=== PATIENT | male | born 1960 | race Caucasian/White ===

== ENCOUNTER 2016-10-10 08:23 | Inpatient (IN) | payer OTHER ==
[2016-10-10 10:53] VITALS: BMI 29.5
--- NOTE | 2016-10-10 11:49 | HP ---
COWS - Scale Resting Pulse: 0= [place] 80 or Below Sweatin= Chills/Flushing Restless Observation: 3= Extraneous Movement Pupil Size: 2= Moderately Dilated Bone or Joint Aches: 4=Acute Joint/Muscle Pain Runny Nose/ Eye Tearin= Nasal Congestion GI Upset > 30mins: 2= Nausea/Diarrhea Tremor Observation: 2= Slight Tremor Visible Yawning Observation: 2= >3x During Session Anxiety or Irritability: 2=Irritable/Anxious Goose Flesh Skin: 0=Smooth Skin COWS Score: 19 CIWA Score - CIWA Score Nausea/Vomitin (DIARRHEA) Muscle Tremors: 4-Moderate,w/Arms Extend Anxiety: 4-Mod. Anxious/Guarded Agitation: 4-Moderately Restless Paroxysmal Sweats: 1-Minimal Palms Moist Orientation: 0-Oriented Tacttile Disturbances: 3-Moderate Itch/Numb/Burn Auditory Disturbances: 0-None Visual Disturbances: 0-None Headache: 1-Very Mild CIWA-Ar Total Score: 20 Admission ROS BHS - HPI Chief Complaint: DETOX TX FOR ALCOHOL AND HEROIN DEPENDENCE Allergies/Adverse Reactions: Allergies Allergy/AdvReac Type Severity Reaction Status Date / Time No Known Allergies Allergy Verified 10/10/16 10:08 History of Present Illness: 56 Y/O H/M WITH A HX HEROIN, ALCOHOL AND COCAINE DEPENDENCE SEEKING DETOX TX. Exam Limitations: No Limitations - Ebola screening Have you traveled outside of the country in the last 21 days: No Have you had contact with anyone from an Ebola affected area: No Have you been sick,other than usual withdrawal symptoms: No Do you have a fever: No - Review of Systems Constitutional: Chills, Diaphoresis, Night Sweats EENT: reports: Blurred Vision, Tearing, Nose Congestion, Dental Problems (UPPER/ LOWER FULL DENTURES) Respiratory: reports: No Symptoms reported Cardiac: reports: Lightheadedness GI: reports: Diarrhea : reports: No Symptoms Reported Musculoskeletal: reports: Back Pain, Joint Pain, Muscle Pain Integumentary: reports: No Symptoms Reported Neuro: reports: Headache, Tremors, Unsteady Gait, Dizziness Endocrine: reports: No Symptoms Reported Hematology: reports: No Symptoms Reported Psychiatric: reports: Orientated x3, Anxious Other Systems: Reviewed and Negative Patient History - Patient Medical History Hx Anemia: No Hx Asthma: No Hx Chronic Obstructive Pulmonary Disease (COPD): No Hx Cancer: No Hx Cardiac Disorders: No Hx Congestive Heart Failure: No Hx Hypertension: Yes (ON MED LISINOPRIL) Hx Hypercholesterolemia: No Hx Pacemaker: No HX Cerebrovascular Accident: No Hx Seizures: No Hx Dementia: No Hx Diabetes: No Hx Gastrointestinal Disorders: No Hx Liver Disease: No Hx Genitourinary Disorders: No Hx Sexually Transmitted Disorders: No Hx Renal Disease (ESRD): No Hx Thyroid Disease: No Hx Human Immunodeficiency Virus (HIV): No (NEGATIVE HX) Hx Hepatitis C: Yes (TREATED) Hx Depression: No Hx Suicide Attempt: No (DENIES) Hx Bipolar Disorder: No Hx Schizophrenia: No - Patient Surgical History Past Surgical History: No Hx Neurologic Surgery: No Hx Cataract Extraction: No Hx Cardiac Surgery: No Hx Lung Surgery: No Hx Breast Surgery: No Hx Breast Biopsy: No Hx Abdominal Surgery: No Hx Appendectomy: No Hx Cholecystectomy: No Hx Genitourinary Surgery: No Hx Orthopedic Surgery: No Anesthesia Reaction: No - PPD History Previous Implant?: Yes Documented Results: Negative w/proof Implanted On Prior [facility] Admission?: Yes Date: 11/12/14 Results: 0 mm PPD to be Administered?: Yes - Reproductive History Patient is a Female of Child Bearing Age (11 -55 yrs old): No (MALE) Patient : (N/A) - Smoking Cessation Smoking history: Never smoked Have you smoked in the past 12 months: No Hx Chewing Tobacco Use: No Initiated information on smoking cessation: No - Substance & Tx. History Hx Alcohol Use: Yes (VODKA) Hx Substance Use: Yes (HEROIN/COCAINE) Substance Use Type: Alcohol, Cocaine, Heroin Hx Substance Use Treatment: Yes (LAST TX AT [facility]) - Substances Abused Heroin Route: Inhalation Frequency: Daily Amount used: 3-4 bags Age of first use: 36 Date of Last Use: 10/09/16 Alcohol Route: Oral Frequency: Daily Amount used: vodka(1 pint) Age of first use: 14 Date of Last Use: 10/09/16 Cocaine Route: Inhalation Frequency: 1-3 times last 30 days Amount used: 1 bag Age of first use: 36 Date of Last Use: 10/09/16 Family Disease History - Family Disease History Family Disease History: Other: Father (ALCOHOL,) Admission Physical Exam BHS - Vital Signs Vital Signs: Vital Signs - 24 hr 10/10/16 10:49 Temperature 97.3 F L Pulse Rate 60 Respiratory 18 Rate Blood Pressure 160/84 - Physical General Appearance: Yes: Nourished, Moderate Distress, Irritable, Anxious HEENTM: Yes: EOMI, Normocephalic, LACY, Pharynx Normal, Nasal Congestion Respiratory: Yes: Chest Non-Tender, Lungs Clear, Normal Breath Sounds, No Respiratory Distress Neck: Yes: No masses,lesions,Nodules, Supple, Trachea in good position Breast: Yes: Breast Exam Deferred Cardiology: Yes: Regular Rhythm, Regular Rate, S1, S2 Abdominal: Yes: Normal Bowel Sounds, Non Tender, Soft Genitourinary: Yes: Other (N/C) Back: Yes: Within Normal Limits Musculoskeletal: Yes: full range of Motion, Gait Steady Extremities: Yes: Normal Range of Motion, Non-Tender Neurological: Yes: sales office coordinator II-XII NML intact, Fully Oriented, Alert, Motor Strength 5/5 Integumentary: Yes: Dry, Warm, Other (TATTOO LEFT UPPER ARM) Lymphatic: Yes: Within Normal Limits - Diagnostic (1) Alcohol dependence with uncomplicated withdrawal Current Visit: Yes Status: Acute (2) Opioid dependence with withdrawal Current Visit: Yes Status: Acute (3) Essential hypertension Current Visit: Yes Status: Chronic Comment: ON MED NOW (4) Cocaine dependence, uncomplicated Current Visit: Yes Status: Acute (5) Hepatitis C Current Visit: Yes Status: Chronic Qualifiers: Viral hepatitis chronicity: chronic Hepatic coma status: without hepatic coma Qualified Code(s): B18.2 - Chronic viral hepatitis C Cleared for Admission [facility] - Detox or Rehab [facility] Level of Care: Medically Managed Detox Regimen/Protocol: Methadone/Librium [facility] Breath Alcohol Content Breath Alcohol Content: 0 Urine Drug Screen - Results Drug Screen Negative: No Urine Drug Screen Results: NARGIS-Cocaine, OPI-Opiates
[2016-10-10] MEDS ORDERED: MENTHOL/PHENOL 1 EACH UD MM PRN (12:06)
[2016-10-10] MEDS ORDERED: LOPERAMIDE HCL 2 MG CAPSULE PO PRN (12:06)
[2016-10-10] MEDS ORDERED: guaiFENesin/D-METHORPHAN HB 10 ML UNIT-DOSE CUPS PO PRN (12:06)
[2016-10-10] MEDS ORDERED: MAG HYDROX/AL HYDROX/SIMETH 30 ML UNIT-DOSE CUP PO PRN (12:06)
[2016-10-10] MEDS ORDERED: IBUPROFEN 400 MG TABLET (FP) PO PRN (12:06)
[2016-10-10] MEDS ORDERED: MAGNESIUM CITRATE 300 ML BOTTLE PO PRN (12:06)
[2016-10-10] MEDS ORDERED: ACETAMINOPHEN 325 MG TABLET (FP) PO PRN (12:06)
[2016-10-10] MEDS ORDERED: P-EPHED 60MG/TRIPROLIDI 2.5MG TABLET PO PRN (12:06)
[2016-10-10] MEDS ORDERED: chlordiazePOXIDE HCL 25 MG CAPSULE PO PRN (12:06)
[2016-10-10] MEDS ORDERED: diphenhydrAMINE HCL 50 MG CAPSULE PO PRN (12:06)
[2016-10-10] MEDS ORDERED: MAGNESIUM HYDROX 2400MG/30ML ORAL SUSPENSION 30 ML CUP PO PRN (12:06)
[2016-10-10] MEDS ORDERED: METHADONE HCL 10 MG TABLET (FOR DETOX USE ONLY) PO ONE ×2 (12:14→23:00)
[2016-10-10] MEDS: LISINOPRIL 20 MG TABLET (FP) PO SCH (13:45)
[2016-10-10 17:06] LABS: URINE APPEARANCE SLCLOUDY; URINE BILIRUBIN NEGATIVE (NEGATIVE); URINE BLOOD 2+ (NEGATIVE); URINE COLOR YELLOW; URINE GLUCOSE (UA) NEGATIVE (NEGATIVE); URINE KETONE NEGATIVE (NEGATIVE); URINE NITRITE NEGATIVE (NEGATIVE); URINE PROTEIN NEGATIVE (NEGATIVE); URINE UROBILINOGEN NEGATIVE mg/dL (0.2-1.0)
[2016-10-10 17:08] LABS: URINE LEUK ESTERASE 3+ (NEGATIVE)
[2016-10-10 17:11] LABS: URINE RBC 12 /hpf (0-3); URINE WBC 127 /hpf (3-5); YEAST FEW
--- NOTE | 2016-10-10 17:47 | EKG ---
Test Reason : Blood Pressure : / mmHG Vent. Rate : 052 BPM Atrial Rate : 052 BPM P-R Int : 136 ms QRS Dur : 088 ms QT Int : 462 ms P-R-T Axes : 066 020 029 degrees QTc Int : 429 ms SINUS BRADYCARDIA OTHERWISE NORMAL ECG NO PREVIOUS ECGS AVAILABLE Confirmed by TONI ADAM MD ([id number]) on 10/10/2016 5:46:49 PM Referred By: Brendon Farrell Confirmed By:TONI ADAM MD
[2016-10-10] MEDS: chlordiazePOXIDE HCL 25 MG CAPSULE PO SCH ×2 (17:55→22:35)
[2016-10-10] MEDS: THIAMINE HCL 100 MG TABLET (FP) PO SCH (22:35)
[2016-10-11] MEDS: chlordiazePOXIDE HCL 25 MG CAPSULE PO SCH ×3 (05:19→17:50)
[2016-10-11] MEDS ORDERED: METHADONE HCL 10 MG TABLET (FOR DETOX USE ONLY) PO SCH (10:00)
[2016-10-11 10:31] LABS: MCH 30.5 pg (25.7-33.7); MCHC 34.5 g/dl (32.0-35.9); MEAN CELL VOLUME 88.3 fl (80-96); PLATELET COUNT 164 K/MM3 (134-434); RDW 13.2 % (11.9-15.9); WHITE BLOOD COUNT 6.7 K/mm3 (4.0-10.0)
[2016-10-11] MEDS: PRENATAL VITAMINS W/ FOLIC ACID TABLET (FP) PO SCH (11:28)
[2016-10-11] MEDS: LISINOPRIL 20 MG TABLET (FP) PO SCH (11:28)
--- NOTE | 2016-10-11 11:28 | PN ---
S CIWA - CIWA Score Nausea/Vomitin Muscle Tremors: 3 Anxiety: 3 Agitation: 3 Paroxysmal Sweats: 1-Minimal Palms Moist Orientation: 0-Oriented Tacttile Disturbances: 1-Very Mild Itch/Numbness Auditory Disturbances: 1-Very Mild Visual Disturbances: 1-Very Mild Sensitivity Headache: 2-Mild CIWA-Ar Total Score: 18 BHS COWS - Scale Resting Pulse: 0= [place] 80 or Below Sweatin= Chills/Flushing Restless Observation: 3= Extraneous Movement Pupil Size: 1= Pupils >than Normal Bone or Joint Aches: 2= Severe Diffuse Aches Runny Nose/ Eye Tearin= Runny Nose/Eyes GI Upset > 30mins: 2= Nausea/Diarrhea Tremor Observation of Outstretched Hands: 2= Slight Tremor Visible Yawning Observation: 1= 1-2x During Session Anxiety or Irritability: 2=Irritable/Anxious Goose Flesh Skin: 0=Smooth Skin COWS Score: 16 S Progress Note (SOAP) Subjective: ALERT,IRRITABLE,ANXIOUS,INTERRUPTED SLEEP,TREMOR,PAIN IN THE BODY AND BACK Objective: 10/11/16 11:25 Vital Signs Temperature 97.5 F L 10/11/16 06:10 Pulse Rate 57 L 10/11/16 06:10 Respiratory Rate 16 10/11/16 06:10 Blood Pressure 143/81 10/11/16 06:10 O2 Sat by Pulse Oximetry (%) EKG SINUS BRADYCARDIA 52/MIN NO CHEST PAIN,NO SOB,NO DIZZINESS Laboratory Last Values WBC 6.7 K/mm3 (4.0-10.0) D 10/11/16 06:00 RBC 4.60 M/mm3 (4.00-5.60) 10/11/16 06:00 Hgb 14.0 GM/dL (11.7-16.9) 10/11/16 06:00 Hct 40.6 % (35.4-49) 10/11/16 06:00 MCV 88.3 fl (80-96) 10/11/16 06:00 MCH 30.5 pg (25.7-33.7) 10/11/16 06:00 MCHC 34.5 g/dl (32.0-35.9) 10/11/16 06:00 RDW 13.2 % (11.9-15.9) 10/11/16 06:00 Plt Count 164 K/MM3 (134-434) 10/11/16 06:00 MPV 11.0 fl (7.5-11.1) D 10/11/16 06:00 Urine Color Yellow 10/10/16 14:00 Urine Appearance Slcloudy 10/10/16 14:00 Urine pH 6.0 (5.0-8.0) 10/10/16 14:00 Ur Specific [place] 1.020 (1.005-1.025) 10/10/16 14:00 Urine Protein Negative (NEGATIVE) 10/10/16 14:00 Urine Glucose (UA) Negative (NEGATIVE) 10/10/16 14:00 Urine Ketones Negative (NEGATIVE) 10/10/16 14:00 Urine Blood 2+ (NEGATIVE) H 10/10/16 14:00 Urine Nitrite Negative (NEGATIVE) 10/10/16 14:00 Urine Bilirubin Negative (NEGATIVE) 10/10/16 14:00 Urine Urobilinogen Negative mg/dL (0.2-1.0) 10/10/16 14:00 Ur Leukocyte Esterase 3+ (NEGATIVE) H 10/10/16 14:00 Urine RBC 12 /hpf (0-3) 10/10/16 14:00 Urine WBC 127 /hpf (3-5) 10/10/16 14:00 Urine Yeast Few 10/10/16 14:00 Assessment: 10/11/16 11:27 WITHDRAWAL SYMPTOM Plan: CONTINUE DETOX,URINE FOR C/S UTI,BACTRIM DS 1 TAB PO BID,ENCOURAGE ORAL FLUID
[2016-10-11 11:58] LABS: ALK PHOS 88 U/L (45-117); ANION GAP 10 (8-16); BILIRUBIN,TOTAL 0.8 mg/dL (0.2-1.0); CALCIUM 9.2 mg/dL (8.5-10.1); CO2 25 mmol/L (21-32); CREATININE 1.1 mg/dL (0.7-1.3); GLUCOSE,RANDOM 114 mg/dL (74-106); SGOT/AST 29 U/L (15-37); SGPT/ALT 26 U/L (12-78); TOT PROT 7.6 g/dl (6.4-8.2)
[2016-10-11] MEDS: SULFAMETHOXAZOLE/TRIMETHOPRIM 800MG/160MG D.S. TABLET PO SCH (23:59)
[2016-10-12] MEDS: chlordiazePOXIDE HCL 25 MG CAPSULE PO SCH ×3 (05:50→10:44)
[2016-10-12] MEDS ORDERED: METHADONE HCL 5 MG TABLET (FOR DETOX USE ONLY) PO SCH (10:00)
--- NOTE | 2016-10-12 10:02 | PN ---
S CIWA - CIWA Score Nausea/Vomitin Muscle Tremors: 3 Anxiety: 3 Agitation: 3 Paroxysmal Sweats: 1-Minimal Palms Moist Orientation: 0-Oriented Tacttile Disturbances: 1-Very Mild Itch/Numbness Auditory Disturbances: 1-Very Mild Visual Disturbances: 1-Very Mild Sensitivity Headache: 2-Mild CIWA-Ar Total Score: 18 BHS COWS - Scale Resting Pulse: 0= [place] 80 or Below Sweatin= Chills/Flushing Restless Observation: 3= Extraneous Movement Pupil Size: 1= Pupils >than Normal Bone or Joint Aches: 2= Severe Diffuse Aches Runny Nose/ Eye Tearin= Runny Nose/Eyes GI Upset > 30mins: 2= Nausea/Diarrhea Tremor Observation of Outstretched Hands: 2= Slight Tremor Visible Yawning Observation: 1= 1-2x During Session Anxiety or Irritability: 2=Irritable/Anxious Goose Flesh Skin: 0=Smooth Skin COWS Score: 16 S Progress Note (SOAP) Subjective: alert,irritable,anxious,interrupted sleep,pain in the body and back,rash right middle finger,tremor Objective: 10/12/16 10:01 Vital Signs Temperature 97.7 F 10/12/16 06:25 Pulse Rate 52 L 10/12/16 06:25 Respiratory Rate 18 10/12/16 06:25 Blood Pressure 155/68 10/12/16 06:25 O2 Sat by Pulse Oximetry (%) Laboratory Last Values WBC 6.7 K/mm3 (4.0-10.0) D 10/11/16 06:00 RBC 4.60 M/mm3 (4.00-5.60) 10/11/16 06:00 Hgb 14.0 GM/dL (11.7-16.9) 10/11/16 06:00 Hct 40.6 % (35.4-49) 10/11/16 06:00 MCV 88.3 fl (80-96) 10/11/16 06:00 MCH 30.5 pg (25.7-33.7) 10/11/16 06:00 MCHC 34.5 g/dl (32.0-35.9) 10/11/16 06:00 RDW 13.2 % (11.9-15.9) 10/11/16 06:00 Plt Count 164 K/MM3 (134-434) 10/11/16 06:00 MPV 11.0 fl (7.5-11.1) D 10/11/16 06:00 Sodium 136 mmol/L (136-145) 10/11/16 06:00 Potassium 4.6 mmol/L (3.5-5.1) 10/11/16 06:00 Chloride 101 mmol/L (98-107) 10/11/16 06:00 Carbon Dioxide 25 mmol/L (21-32) 10/11/16 06:00 Anion Gap 10 (8-16) 10/11/16 06:00 BUN 17 mg/dL (7-18) 10/11/16 06:00 Creatinine 1.1 mg/dL (0.7-1.3) 10/11/16 06:00 Creat Clearance w eGFR > 60 (>60) 10/11/16 06:00 Random Glucose 114 mg/dL (74-106) H 10/11/16 06:00 Calcium 9.2 mg/dL (8.5-10.1) 10/11/16 06:00 Total Bilirubin 0.8 mg/dL (0.2-1.0) 10/11/16 06:00 AST 29 U/L (15-37) D 10/11/16 06:00 ALT 26 U/L (12-78) D 10/11/16 06:00 Alkaline Phosphatase 88 U/L (45-117) D 10/11/16 06:00 Total Protein 7.6 g/dl (6.4-8.2) 10/11/16 06:00 Albumin 4.0 g/dl (3.4-5.0) D 10/11/16 06:00 Urine Color Yellow 10/10/16 14:00 Urine Appearance Slcloudy 10/10/16 14:00 Urine pH 6.0 (5.0-8.0) 10/10/16 14:00 Ur Specific [place] 1.020 (1.005-1.025) 10/10/16 14:00 Urine Protein Negative (NEGATIVE) 10/10/16 14:00 Urine Glucose (UA) Negative (NEGATIVE) 10/10/16 14:00 Urine Ketones Negative (NEGATIVE) 10/10/16 14:00 Urine Blood 2+ (NEGATIVE) H 10/10/16 14:00 Urine Nitrite Negative (NEGATIVE) 10/10/16 14:00 Urine Bilirubin Negative (NEGATIVE) 10/10/16 14:00 Urine Urobilinogen Negative mg/dL (0.2-1.0) 10/10/16 14:00 Ur Leukocyte Esterase 3+ (NEGATIVE) H 10/10/16 14:00 Urine RBC 12 /hpf (0-3) 10/10/16 14:00 Urine WBC 127 /hpf (3-5) 10/10/16 14:00 Urine Yeast Few 10/10/16 14:00 RPR Titer Nonreactive (NONREACTIVE) 10/11/16 06:00 urine for c/s pending Assessment: 10/12/16 10:02 withdrawal symptom Plan: continue detox
[2016-10-12] MEDS: LISINOPRIL 20 MG TABLET (FP) PO SCH (10:43)
[2016-10-12] MEDS: PRENATAL VITAMINS W/ FOLIC ACID TABLET (FP) PO SCH (10:43)
[2016-10-12] MEDS: SULFAMETHOXAZOLE/TRIMETHOPRIM 800MG/160MG D.S. TABLET PO SCH ×2 (10:43→22:35)
[2016-10-12] MEDS: HYDROCORTISONE 0.5% TOPICAL CREAM 30 GM TUBE TP SCH ×2 (10:46→22:51)
[2016-10-12] MEDS: chlordiazePOXIDE 5 MG CAPSULE PO SCH ×2 (19:01→22:35)
[2016-10-12] MEDS: THIAMINE HCL 100 MG TABLET (FP) PO SCH ×2 (22:35)
[2016-10-13] MEDS: chlordiazePOXIDE 5 MG CAPSULE PO SCH ×2 (07:00→11:14)
--- NOTE | 2016-10-13 08:14 | PN ---
S Progress Note (SOAP) Subjective: alert,irritable,anxious,interrupted sleep,pain in the body Objective: 10/13/16 08:13 Vital Signs Temperature 97.3 F L 10/13/16 06:11 Pulse Rate 59 L 10/13/16 06:11 Respiratory Rate 16 10/13/16 06:11 Blood Pressure 112/61 10/13/16 06:11 O2 Sat by Pulse Oximetry (%) Assessment: 10/13/16 08:13 withdrawal symptom but less Plan: continue detox,medication adjust,discharge in am
[2016-10-13] MEDS ORDERED: METHADONE HCL 10 MG TABLET (FOR DETOX USE ONLY) PO ONE (10:10)
[2016-10-13] MEDS: SULFAMETHOXAZOLE/TRIMETHOPRIM 800MG/160MG D.S. TABLET PO SCH (11:13)
[2016-10-13] MEDS: PRENATAL VITAMINS W/ FOLIC ACID TABLET (FP) PO SCH (11:13)
[2016-10-13] MEDS: LISINOPRIL 20 MG TABLET (FP) PO SCH (11:13)
[2016-10-13] MEDS: HYDROCORTISONE 0.5% TOPICAL CREAM 30 GM TUBE TP SCH (11:14)
[2016-10-13] MEDS: chlordiazePOXIDE HCL 10 MG CAPSULE PO SCH (18:05)
[2016-10-14] MEDS: chlordiazePOXIDE HCL 10 MG CAPSULE PO SCH (05:28)
[2016-10-14] MEDS ORDERED: METHADONE HCL 5 MG TABLET (FOR DETOX USE ONLY) PO ONE (06:00)
[2016-10-14 06:25] VITALS: BP 133/78; PULSE 48; TEMP 97.3
--- NOTE | 2016-10-14 08:30 | DS ---
[facility] Detox Discharge Summary Admission Date: 10/10/16 Discharge Date: 10/14/16 - History Present History: Alcohol Dependence, Cocaine Dependence, Opioid Dependence Pertinent Past History: essential hypertension hepatitis c uti - Physical Exam Results Vital Signs: Vital Signs Temperature 97.3 F L 10/14/16 06:24 Pulse Rate 48 L 10/14/16 06:24 Respiratory Rate 16 10/14/16 06:24 Blood Pressure 133/78 10/14/16 06:24 O2 Sat by Pulse Oximetry (%) Pertinent Admission Physical Exam Findings: withdrawal symptom - Treatment Hospital Course: Detox Protocol Followed, Detoxed Safely, Responded well, Discharged Condition Good Patient has Accepted a Rehab Referral to: declined - Medication Discharge Medications: Ambulatory Orders Lisinopril 20 mg PO DAILY 10/10/16 - Diagnosis (1) UTI (urinary tract infection) Current Visit: Yes Status: Acute (2) Alcohol dependence with uncomplicated withdrawal Current Visit: Yes Status: Acute (3) Cocaine dependence, uncomplicated Current Visit: Yes Status: Acute (4) Opioid dependence with withdrawal Current Visit: Yes Status: Acute (5) Essential hypertension Current Visit: Yes Status: Chronic (6) Hepatitis C Current Visit: Yes Status: Chronic Qualifiers: Viral hepatitis chronicity: chronic Hepatic coma status: without hepatic coma Qualified Code(s): B18.2 - Chronic viral hepatitis C (7) Syncope Current Visit: No Status: Active (8) Nicotine dependence Current Visit: No Status: Chronic Qualifiers: Nicotine product type: cigarettes Substance use status: uncomplicated Qualified Code(s): F17.210 - Nicotine dependence, cigarettes, uncomplicated - AMA Did Patient Leave Against Medical Advice: No
[2016-10-14] MEDS ORDERED: METHADONE HCL 10 MG TABLET (FOR DETOX USE ONLY) PO SCH (10:00)
[2016-10-15] MEDS ORDERED: METHADONE HCL 5 MG TABLET (FOR DETOX USE ONLY) PO SCH (06:00)
== END 2016-10-14 08:47 | disposition home or self-care (01) | DRG 773 ==
LOC: YASAS 08:23 → Y6N 11:36
PROVIDERS: ADMIT Internal Medicine; ATTEND Internal Medicine
PROC: HZ2ZZZZ Detoxification Services for Substance Abuse Treatment (ICD-10-PCS; principal; 2016-10-10)
DX: F11.23 Opioid dependence with withdrawal (principal); F10.230 Alcohol dependence with withdrawal, uncomplicated; F14.20 Cocaine dependence, uncomplicated; F17.210 Nicotine dependence, cigarettes, uncomplicated; I10 Essential (primary) hypertension; N39.0 Urinary tract infection, site not specified; B18.2 Chronic viral hepatitis C; R00.1 Bradycardia, unspecified; Z86.79 Personal history of other diseases of the circulatory system
CPT/HCPCS: 36415; 80053; 81003; 81015; 82947; 85027; 86593; 87086; 87186; 93005; 93010

== ENCOUNTER 2017-02-06 13:39 | Inpatient (IN) | payer OTHER ==
[2017-02-06 14:01] VITALS: BMI 25.4
--- NOTE | 2017-02-06 15:04 | HP ---
COWS - Scale Resting Pulse: 1= [place] 81-100 Sweatin=Flushed/Facial Moisture Restless Observation: 1= Difficult to Sit Still Pupil Size: 0= Normal to Room Light Bone or Joint Aches: 2= Severe Diffuse Aches Runny Nose/ Eye Tearin= Runny Nose/Eyes GI Upset > 30mins: 2= Nausea/Diarrhea Tremor Observation: 2= Slight Tremor Visible Yawning Observation: 2= >3x During Session Anxiety or Irritability: 2=Irritable/Anxious Goose Flesh Skin: 3=Piloerection COWS Score: 19 CIWA Score - CIWA Score Nausea/Vomitin-Mild Nausea/No Vomiting Muscle Tremors: 4-Moderate,w/Arms Extend Anxiety: 4-Mod. Anxious/Guarded Agitation: 4-Moderately Restless Paroxysmal Sweats: 3 Orientation: 0-Oriented Tacttile Disturbances: 0-None Auditory Disturbances: 0-None Visual Disturbances: 0-None Headache: 1-Very Mild CIWA-Ar Total Score: 17 Admission ROS BHS - HPI Chief Complaint: I need to try this again, I have to get it right. Allergies/Adverse Reactions: Allergies Allergy/AdvReac Type Severity Reaction Status Date / Time No Known Allergies Allergy Verified 02/06/17 14:55 History of Present Illness: pt is a 56yr old male with a history of alcohol and heroin dependence seeking detox for treatment. Exam Limitations: No Limitations - Ebola screening Have you traveled outside of the country in the last 21 days: No Have you had contact with anyone from an Ebola affected area: No Have you been sick,other than usual withdrawal symptoms: No Do you have a fever: No - Review of Systems Constitutional: Diaphoresis, Loss of Appetite, Night Sweats, Changes in sleep EENT: reports: Tearing Respiratory: reports: No Symptoms reported Cardiac: reports: No Symptoms Reported GI: reports: Diarrhea, Nausea, Poor Appetite, Poor Fluid Intake : reports: No Symptoms Reported Musculoskeletal: reports: No Symptoms Reported Integumentary: reports: Flushing, Sweating Neuro: reports: Headache, Tingling, Tremors Endocrine: reports: Excessive Sweating, Flushing, Intolerance to Cold, Intolerance to Heat Hematology: reports: No Symptoms Reported Psychiatric: reports: Judgement Intact, Mood/Affect Appropiate, Orientated x3, Agitated, Anxious Other Systems: Reviewed and Negative Patient History - Patient Medical History Hx Anemia: No Hx Asthma: No Hx Chronic Obstructive Pulmonary Disease (COPD): No Hx Cancer: No Hx Cardiac Disorders: No Hx Congestive Heart Failure: No Hx Hypertension: Yes (ON MED LISINOPRIL) Hx Hypercholesterolemia: No Hx Pacemaker: No HX Cerebrovascular Accident: No Hx Seizures: No Hx Dementia: No Hx Diabetes: No Hx Gastrointestinal Disorders: No Hx Liver Disease: No Hx Genitourinary Disorders: No Hx Sexually Transmitted Disorders: No Hx Renal Disease (ESRD): No Hx Thyroid Disease: No Hx Human Immunodeficiency Virus (HIV): No (NEGATIVE HX) Hx Hepatitis C: Yes (TREATED) Hx Depression: No Hx Suicide Attempt: No (DENIES) Hx Bipolar Disorder: No Hx Schizophrenia: No - Patient Surgical History Past Surgical History: No Hx Neurologic Surgery: No Hx Cataract Extraction: No Hx Cardiac Surgery: No Hx Lung Surgery: No Hx Breast Surgery: No Hx Breast Biopsy: No Hx Abdominal Surgery: No Hx Appendectomy: No Hx Cholecystectomy: No Hx Genitourinary Surgery: No Hx Section: No Hx Orthopedic Surgery: No Anesthesia Reaction: No - PPD History Previous Implant?: Yes Documented Results: Negative w/proof Date: 10/12/16 Results: 0 mm PPD to be Administered?: No - Reproductive History Patient is a Female of Child Bearing Age (11 -55 yrs old): No - Smoking Cessation Smoking history: Never smoked Have you smoked in the past 12 months: No Hx Chewing Tobacco Use: No Initiated information on smoking cessation: No - Substance & Tx. History Hx Alcohol Use: Yes Hx Substance Use: Yes Substance Use Type: Alcohol, Heroin Hx Substance Use Treatment: Yes (last detox [facility]) - Substances Abused Alcohol Route: Oral Frequency: Daily Amount used: 5-6 BEERS/ 1/2 PINT VODKA Age of first use: 14 Date of Last Use: 02/06/17 Heroin Route: Inhalation Frequency: Daily Amount used: 8-9 BAGS Age of first use: 35 Date of Last Use: 02/05/17 Family Disease History - Family Disease History Family Disease History: Other: Father (ALCOHOL,) Admission Physical Exam BHS - Vital Signs Vital Signs: Vital Signs - 24 hr 02/06/17 13:57 Temperature 96.8 F L Pulse Rate 85 Respiratory 18 Rate Blood Pressure 149/50 - Physical General Appearance: Yes: Appropriately Dressed, Moderate Distress, Tremorous, Irritable, Sweating, Anxious HEENTM: Yes: Hearing grossly Normal, Normal Voice, Nasal Congestion, Rhinorrhea Respiratory: Yes: Lungs Clear, Normal Breath Sounds, No Respiratory Distress Neck: Yes: No masses,lesions,Nodules Breast: Yes: Within Normal Limits Cardiology: Yes: Regular Rhythm, Regular Rate, S1, S2 Abdominal: Yes: Normal Bowel Sounds, Non Tender, Soft Genitourinary: Yes: Within Normal Limits Back: Yes: Normal Inspection Musculoskeletal: Yes: full range of Motion Extremities: Yes: Normal Capillary Refill, Normal Inspection Neurological: Yes: Fully Oriented, Alert, Normal Response Integumentary: Yes: Normal Color, Diaphoresis Lymphatic: Yes: Within Normal Limits - Diagnostic (1) Alcohol dependence with uncomplicated withdrawal Current Visit: Yes Status: Chronic (2) Cocaine dependence, uncomplicated Current Visit: Yes Status: Chronic (3) Opioid dependence with withdrawal Current Visit: Yes Status: Chronic (4) Essential hypertension Current Visit: Yes Status: Chronic Comment: ON MED NOW (5) Hepatitis C Current Visit: No Status: Chronic Qualifiers: Viral hepatitis chronicity: unspecified Hepatic coma status: without hepatic coma Qualified Code(s): B19.20 - Unspecified viral hepatitis C without hepatic coma Cleared for Admission [facility] - Detox or Rehab [facility] Level of Care: Medically Managed Detox Regimen/Protocol: Methadone/Librium [facility] Breath Alcohol Content Breath Alcohol Content: 0 Urine Drug Screen - Results Drug Screen Negative: No Urine Drug Screen Results: NARGIS-Cocaine, OPI-Opiates, BZO-Benzodiazepines, MTD- Methadone
[2017-02-06] MEDS ORDERED: P-EPHED 60MG/TRIPROLIDI 2.5MG TABLET PO PRN (15:12)
[2017-02-06] MEDS ORDERED: MAG HYDROX/AL HYDROX/SIMETH 30 ML UNIT-DOSE CUP PO PRN (15:12)
[2017-02-06] MEDS ORDERED: MAGNESIUM HYDROX 2400MG/30ML ORAL SUSPENSION 30 ML CUP PO PRN (15:12)
[2017-02-06] MEDS ORDERED: IBUPROFEN 400 MG TABLET (FP) PO PRN (15:12)
[2017-02-06] MEDS ORDERED: chlordiazePOXIDE HCL 25 MG CAPSULE PO PRN (15:12)
[2017-02-06] MEDS ORDERED: MENTHOL/PHENOL 1 EACH UD MM PRN (15:12)
[2017-02-06] MEDS ORDERED: guaiFENesin/D-METHORPHAN HB 10 ML UNIT-DOSE CUPS PO PRN (15:12)
[2017-02-06] MEDS ORDERED: ACETAMINOPHEN 325 MG TABLET (FP) PO PRN (15:12)
[2017-02-06] MEDS ORDERED: MAGNESIUM CITRATE 300 ML BOTTLE PO PRN (15:12)
[2017-02-06] MEDS ORDERED: hydrOXYzine PAMOATE 50 MG CAPSULE (FP) PO PRN (15:12)
[2017-02-06] MEDS ORDERED: LOPERAMIDE HCL 2 MG CAPSULE PO PRN (15:12)
[2017-02-06] MEDS ORDERED: chlordiazePOXIDE HCL 25 MG CAPSULE PO ONE (15:27)
[2017-02-06] MEDS ORDERED: METHADONE HCL 10 MG TABLET (FOR DETOX USE ONLY) PO ONE ×2 (15:29→23:00)
[2017-02-06] MEDS: chlordiazePOXIDE HCL 25 MG CAPSULE PO SCH ×2 (16:59→22:18)
[2017-02-06 22:02] LABS: URINE APPEARANCE CLOUDY; URINE BILIRUBIN NEGATIVE (NEGATIVE); URINE BLOOD 1+ (NEGATIVE); URINE COLOR DKYELLOW; URINE GLUCOSE (UA) NEGATIVE (NEGATIVE); URINE KETONE NEGATIVE (NEGATIVE); URINE NITRITE NEGATIVE (NEGATIVE)
[2017-02-06 22:03] LABS: URINE PROTEIN 1+ (NEGATIVE)
[2017-02-06 22:07] LABS: URINE MUCUS RARE; URINE RBC 17 /hpf (0-3); URINE WBC 633 /hpf (3-5)
[2017-02-06] MEDS: THIAMINE HCL 100 MG TABLET (FP) PO SCH (22:17)
[2017-02-07] MEDS: chlordiazePOXIDE HCL 25 MG CAPSULE PO SCH ×4 (07:58→22:25)
[2017-02-07 09:38] LABS: URINE LEUK ESTERASE 1+ (NEGATIVE)
[2017-02-07] MEDS ORDERED: METHADONE HCL 10 MG TABLET (FOR DETOX USE ONLY) PO SCH (10:00)
[2017-02-07 10:09] LABS: MCH 30.4 pg (25.7-33.7); MCHC 34.3 g/dl (32.0-35.9); MEAN CELL VOLUME 88.6 fl (80-96); MEAN PLT VOLUME 9.3 fl (7.5-11.1); PLATELET COUNT 188 K/MM3 (134-434); WHITE BLOOD COUNT 5.2 K/mm3 (4.0-10.0)
--- NOTE | 2017-02-07 10:18 | EKG ---
Test Reason : Blood Pressure : / mmHG Vent. Rate : 066 BPM Atrial Rate : 066 BPM P-R Int : 128 ms QRS Dur : 084 ms QT Int : 426 ms P-R-T Axes : 065 051 038 degrees QTc Int : 446 ms NORMAL SINUS RHYTHM NORMAL ECG WHEN COMPARED WITH ECG OF 10-OCT-2016 12:24, NO SIGNIFICANT CHANGE WAS FOUND Confirmed by REGIS MATHIS MD ([id number]) on 02/07/2017 10:18:07 AM Referred By: Confirmed By:REGIS MATHIS MD
[2017-02-07] MEDS: PRENATAL VITAMINS W/ FOLIC ACID TABLET (FP) PO SCH (10:20)
[2017-02-07 10:37] LABS: ALK PHOS 66 U/L (45-117); ANION GAP 5 (8-16); BILIRUBIN,TOTAL 0.4 mg/dL (0.2-1.0); CALCIUM 8.5 mg/dL (8.5-10.1); CO2 30 mmol/L (21-32); GLUCOSE,RANDOM 98 mg/dL (74-106); SGOT/AST 11 U/L (15-37); SGPT/ALT 18 U/L (12-78); TOT PROT 5.9 g/dl (6.4-8.2)
--- NOTE | 2017-02-07 10:49 | PN ---
[facility] CIWA - CIWA Score Nausea/Vomitin-No Nausea/No Vomiting Muscle Tremors: 4-Moderate,w/Arms Extend Anxiety: 4-Mod. Anxious/Guarded Agitation: 3 Paroxysmal Sweats: 3 Orientation: 0-Oriented Tacttile Disturbances: 3-Moderate Itch/Numb/Burn Auditory Disturbances: 0-None Visual Disturbances: 2-Mild Sensitivity Headache: 0-None Present CIWA-Ar Total Score: 19 BHS COWS - Scale Resting Pulse: 0= [place] 80 or Below Sweatin= Chills/Flushing Restless Observation: 1= Difficult to Sit Still Pupil Size: 0= Normal to Room Light Bone or Joint Aches: 2= Severe Diffuse Aches Runny Nose/ Eye Tearin= None GI Upset > 30mins: 1= Stomach Cramp Tremor Observation of Outstretched Hands: 2= Slight Tremor Visible Yawning Observation: 1= 1-2x During Session Anxiety or Irritability: 2=Irritable/Anxious Goose Flesh Skin: 3=Piloerection COWS Score: 13 BHS Progress Note (SOAP) Subjective: Tremors, Anxious, Body Aches, Sweating. Objective: PT. A & O X 3, OBSERVED AMBULATING ON UNIT. NO ACUTE DISTRESS. PT. REPORTS WOUND ON POSTERIOR ASPECT OF LEFT UPPER LEG THAT WAS DRAINED IN ER APPROX. 1 WEEK AGO. PATIENT DID NOT FOLLOW-UP FOR MEDICAL CARE FOR WOUND AFTER ER VISIT. VISUAL INSPECTION OF WOUND REVEALS WOUND, APPROX. 1 INCH IN DIAMETER ON POSTERIOR ASPECT OF LEFT UPPER LEG. EDGES OF WOUND ARE WELL-APPROXIMATED. NO SWELLING, BLEEDING, OR UNUSUAL DISCHARGE NOTED AT AFFECTED SITE. 02/07/17 10:41 Vital Signs Temperature 98.6 F 02/07/17 09:15 Pulse Rate 62 02/07/17 09:15 Respiratory Rate 18 02/07/17 09:15 Blood Pressure 149/83 02/07/17 09:15 O2 Sat by Pulse Oximetry (%) Laboratory Tests 02/06/17 02/07/17 15:00 07:00 WBC 5.2 RBC 4.16 Hgb 12.6 Hct 36.8 MCV 88.6 MCH 30.4 MCHC 34.3 RDW 13.0 Plt Count 188 MPV 9.3 D Urine Color Dkyellow Urine Appearance Cloudy Urine pH 5.0 Ur Specific [place] 1.023 Urine Protein 1+ H Urine Glucose (UA) Negative Urine Ketones Negative Urine Blood 1+ H Urine Nitrite Negative Urine Bilirubin Negative Urine Urobilinogen 2.0 Ur Leukocyte Esterase 1+ H Urine WBC (Auto) 633 Urine RBC (Auto) 17 Urine Mucus Rare LABS NOTED. RESULTS OF CMP PENDING. 02/07/17 10:44 Assessment: 02/07/17 10:42 WITHDRAWAL SYMPTOMS. Plan: CONTINUE DETOX. BACTRIM DS PO BID X 10 DAYS. BACITRACIN APPLIED TO WOUND ON LEFT UPPER LEG AND COVERED WITH GAUZE BID. REPEAT UA WITH URINE C + S FOR ADMISSION UA ABNORMALITIES. INCREASE DAILY PO FLUID INTAKE.
[2017-02-07] MEDS: SULFAMETHOXAZOLE/TRIMETHOPRIM 800MG/160MG D.S. TABLET PO SCH ×2 (12:16→22:25)
[2017-02-07] MEDS: BACITRACIN 0.9 GM PACKET TP SCH ×2 (12:16→22:25)
[2017-02-07] MEDS: THIAMINE HCL 100 MG TABLET (FP) PO SCH (22:25)
[2017-02-08 00:12] LABS: PH,URINE 6.5 (5.0-8.0); URINE APPEARANCE CLEAR; URINE BILIRUBIN NEGATIVE (NEGATIVE); URINE BLOOD TRACE-INTA (NEGATIVE); URINE COLOR LT. YELLOW; URINE GLUCOSE (UA) NEGATIVE (NEGATIVE); URINE KETONE NEGATIVE (NEGATIVE); URINE PROTEIN NEGATIVE (NEGATIVE); URINE UROBILINOGEN 0.2 mg/dL (0.2-1.0)
[2017-02-08 00:21] LABS: URINE NITRITE POSITIVE (NEGATIVE)
[2017-02-08 02:34] LABS: CALCIUM OXALATE CRYSTALS FEW /hpf (NONE SEEN); URINE BACTERIA MODERATE /hpf (NONE SEEN); URINE HYALINE CAST 2 /lpf; URINE MUCUS RARE; URINE RBC 14 /hpf (0-3); URINE WBC 215 /hpf (3-5)
[2017-02-08] MEDS: chlordiazePOXIDE HCL 25 MG CAPSULE PO SCH ×2 (05:43→10:32)
[2017-02-08 09:27] LABS: URINE LEUK ESTERASE 3+ (NEGATIVE)
--- NOTE | 2017-02-08 10:30 | PN ---
[facility] CIWA - CIWA Score Nausea/Vomitin-No Nausea/No Vomiting Muscle Tremors: 3 Anxiety: 4-Mod. Anxious/Guarded Agitation: 4-Moderately Restless Paroxysmal Sweats: 3 Orientation: 0-Oriented Tacttile Disturbances: 2-Mild Itch/Numbness/Burn Auditory Disturbances: 0-None Visual Disturbances: 0-None Headache: 0-None Present CIWA-Ar Total Score: 16 S COWS - Scale Resting Pulse: 0= [place] 80 or Below Sweatin=Flushed/Facial Moisture Restless Observation: 1= Difficult to Sit Still Pupil Size: 0= Normal to Room Light Bone or Joint Aches: 2= Severe Diffuse Aches Runny Nose/ Eye Tearin= Nasal Congestion GI Upset > 30mins: 0= None Tremor Observation of Outstretched Hands: 2= Slight Tremor Visible Yawning Observation: 1= 1-2x During Session Anxiety or Irritability: 2=Irritable/Anxious Goose Flesh Skin: 3=Piloerection COWS Score: 14 S Progress Note (SOAP) Subjective: Body Aches, Anxious, Tremors, Sweating. Objective: PT. A & O X 3, OBSERVED AMBULATING ON UNIT. NO ACUTE DISTRESS. 02/08/17 10:27 Vital Signs Temperature 97.8 F 02/08/17 09:21 Pulse Rate 72 02/08/17 09:21 Respiratory Rate 18 02/08/17 09:21 Blood Pressure 141/84 02/08/17 09:21 O2 Sat by Pulse Oximetry (%) Laboratory Tests 02/06/17 02/07/17 02/07/17 15:00 07:00 07:00 WBC 5.2 RBC 4.16 Hgb 12.6 Hct 36.8 MCV 88.6 MCH 30.4 MCHC 34.3 RDW 13.0 Plt Count 188 MPV 9.3 D Sodium 141 Potassium 4.1 Chloride 106 Carbon Dioxide 30 Anion Gap 5 L BUN 15 Creatinine 1.0 Creat Clearance w eGFR > 60 Random Glucose 98 Calcium 8.5 Total Bilirubin 0.4 D AST 11 L D ALT 18 D Alkaline Phosphatase 66 D Total Protein 5.9 L D Albumin 3.0 L D Urine Color Dkyellow Urine Appearance Cloudy Urine pH 5.0 Ur Specific [place] 1.023 Urine Protein 1+ H Urine Glucose (UA) Negative Urine Ketones Negative Urine Blood 1+ H Urine Nitrite Negative Urine Bilirubin Negative Urine Urobilinogen 2.0 Ur Leukocyte Esterase 1+ H Urine WBC (Auto) 633 Urine RBC (Auto) 17 Calcium Oxalate Crystal Urine Bacteria Hyaline Casts Urine Mucus Rare RPR Titer 02/07/17 02/07/17 07:00 19:00 WBC RBC Hgb Hct MCV MCH MCHC RDW Plt Count MPV Sodium Potassium Chloride Carbon Dioxide Anion Gap BUN Creatinine Creat Clearance w eGFR Random Glucose Calcium Total Bilirubin AST ALT Alkaline Phosphatase Total Protein Albumin Urine Color Lt. yellow Urine Appearance Clear Urine pH 6.5 D Ur Specific [place] 1.020 Urine Protein Negative Urine Glucose (UA) Negative Urine Ketones Negative Urine Blood Trace-inta Urine Nitrite Positive Urine Bilirubin Negative Urine Urobilinogen 0.2 Ur Leukocyte Esterase 3+ H D Urine WBC (Auto) 215 Urine RBC (Auto) 14 Calcium Oxalate Crystal Few Urine Bacteria Moderate Hyaline Casts 2 Urine Mucus Rare RPR Titer Nonreactive LABS NOTED. RESULTS OF REPEAT UA NOTED. URINE C + S RESULT PENDING. PATIENT CURRENTLY ON BACTRIM DS BID FOR WOUND ON LEG. 02/08/17 10:28 Assessment: 02/08/17 10:27 WITHDRAWAL SYMPTOMS. Plan: CONTINUE DETOX. INCREASE DAILY PO FLUID INTAKE. START PATIENT ON LISINOPRIL, 20 MG PO DAILY (PATIENT REPORTS THAT HE TAKES THIS MEDICATION ON A DAILY BASIS AT HOME).
[2017-02-08] MEDS: BACITRACIN 0.9 GM PACKET TP SCH ×2 (10:31→22:19)
[2017-02-08] MEDS: PRENATAL VITAMINS W/ FOLIC ACID TABLET (FP) PO SCH (10:32)
[2017-02-08] MEDS: METHADONE HCL 5 MG TABLET (FOR DETOX USE ONLY) PO SCH (10:32)
[2017-02-08] MEDS: SULFAMETHOXAZOLE/TRIMETHOPRIM 800MG/160MG D.S. TABLET PO SCH ×2 (10:32→22:19)
[2017-02-08] MEDS: LISINOPRIL 20 MG TABLET (FP) PO SCH (10:33)
[2017-02-08] MEDS: chlordiazePOXIDE 5 MG CAPSULE PO SCH ×2 (17:11→22:19)
[2017-02-08] MEDS: THIAMINE HCL 100 MG TABLET (FP) PO SCH (22:19)
[2017-02-09] MEDS: chlordiazePOXIDE 5 MG CAPSULE PO SCH ×2 (05:53→10:33)
[2017-02-09] MEDS: BACITRACIN 0.9 GM PACKET TP SCH ×2 (10:34→22:21)
[2017-02-09] MEDS: SULFAMETHOXAZOLE/TRIMETHOPRIM 800MG/160MG D.S. TABLET PO SCH ×2 (10:34→22:21)
[2017-02-09] MEDS: LISINOPRIL 20 MG TABLET (FP) PO SCH (10:34)
[2017-02-09] MEDS: METHADONE HCL 5 MG TABLET (FOR DETOX USE ONLY) PO SCH (10:34)
[2017-02-09] MEDS: PRENATAL VITAMINS W/ FOLIC ACID TABLET (FP) PO SCH (10:34)
--- NOTE | 2017-02-09 11:52 | PN ---
[facility] Progress Note (SOAP) Subjective: Anxious, Diarrhea. Objective: PT. A & O X 3, OBSERVED AMBULATING ON UNIT. NO ACUTE DISTRESS. PATIENT DENIES CHEST PAIN. WOUND ON LEFT LEG HEALING WELL. 02/09/17 11:48 Vital Signs Temperature 98.3 F 02/09/17 09:15 Pulse Rate 71 02/09/17 09:15 Respiratory Rate 18 02/09/17 09:15 Blood Pressure 129/74 02/09/17 09:15 O2 Sat by Pulse Oximetry (%) Laboratory Tests 02/06/17 02/07/17 02/07/17 15:00 07:00 07:00 WBC 5.2 RBC 4.16 Hgb 12.6 Hct 36.8 MCV 88.6 MCH 30.4 MCHC 34.3 RDW 13.0 Plt Count 188 MPV 9.3 D Sodium 141 Potassium 4.1 Chloride 106 Carbon Dioxide 30 Anion Gap 5 L BUN 15 Creatinine 1.0 Creat Clearance w eGFR > 60 Random Glucose 98 Calcium 8.5 Total Bilirubin 0.4 D AST 11 L D ALT 18 D Alkaline Phosphatase 66 D Total Protein 5.9 L D Albumin 3.0 L D Urine Color Dkyellow Urine Appearance Cloudy Urine pH 5.0 Ur Specific [place] 1.023 Urine Protein 1+ H Urine Glucose (UA) Negative Urine Ketones Negative Urine Blood 1+ H Urine Nitrite Negative Urine Bilirubin Negative Urine Urobilinogen 2.0 Ur Leukocyte Esterase 1+ H Urine WBC (Auto) 633 Urine RBC (Auto) 17 Calcium Oxalate Crystal Urine Bacteria Hyaline Casts Urine Mucus Rare RPR Titer 02/07/17 02/07/17 07:00 19:00 WBC RBC Hgb Hct MCV MCH MCHC RDW Plt Count MPV Sodium Potassium Chloride Carbon Dioxide Anion Gap BUN Creatinine Creat Clearance w eGFR Random Glucose Calcium Total Bilirubin AST ALT Alkaline Phosphatase Total Protein Albumin Urine Color Lt. yellow Urine Appearance Clear Urine pH 6.5 D Ur Specific [place] 1.020 Urine Protein Negative Urine Glucose (UA) Negative Urine Ketones Negative Urine Blood Trace-inta Urine Nitrite Positive Urine Bilirubin Negative Urine Urobilinogen 0.2 Ur Leukocyte Esterase 3+ H D Urine WBC (Auto) 215 Urine RBC (Auto) 14 Calcium Oxalate Crystal Few Urine Bacteria Moderate Hyaline Casts 2 Urine Mucus Rare RPR Titer Nonreactive LABS NOTED. RESULT OF URINE CULTURE NOTED. RESULTS OF URINE SENSITIVITY PENDING. PATIENT DENIES ANY UNUSUAL URINARY SYMPTOMS (BURNING, PAIN, FREQUENCY, URGENCY). 02/09/17 11:48 Assessment: 02/09/17 11:48 WITHDRAWAL SYMPTOMS. UTI. 02/09/17 11:53 Plan: CONTINUE DETOX. INCREASE DAILY PO FLUID INTAKE. CONTINUE BACTRIM DS PO BID FOR TIME BEING UNTIL RESULTS OF URINE SENSITIVITY ARE AVAILABLE.
[2017-02-09] MEDS: chlordiazePOXIDE HCL 10 MG CAPSULE PO SCH ×2 (17:26→22:21)
[2017-02-09] MEDS: THIAMINE HCL 100 MG TABLET (FP) PO SCH (22:21)
[2017-02-10] MEDS: chlordiazePOXIDE HCL 10 MG CAPSULE PO SCH ×2 (06:17→10:29)
[2017-02-10] MEDS ORDERED: METHADONE HCL 10 MG TABLET (FOR DETOX USE ONLY) PO SCH (10:00)
[2017-02-10] MEDS: LISINOPRIL 20 MG TABLET (FP) PO SCH (10:28)
[2017-02-10] MEDS: BACITRACIN 0.9 GM PACKET TP SCH ×2 (10:28→22:08)
[2017-02-10] MEDS: PRENATAL VITAMINS W/ FOLIC ACID TABLET (FP) PO SCH (10:28)
[2017-02-10] MEDS: SULFAMETHOXAZOLE/TRIMETHOPRIM 800MG/160MG D.S. TABLET PO SCH ×2 (10:29→22:08)
--- NOTE | 2017-02-10 16:19 | PN ---
[facility] Progress Note (SOAP) Subjective: Diarrhea, Stomach Cramping. Objective: PT. A & O X 3, OBSERVED AMBULATING ON UNIT. NO ACUTE DISTRESS. 02/10/17 16:16 Vital Signs Temperature 98.4 F 02/10/17 10:00 Pulse Rate 71 02/10/17 10:00 Respiratory Rate 18 02/10/17 10:00 Blood Pressure 116/67 02/10/17 10:00 O2 Sat by Pulse Oximetry (%) Laboratory Tests 02/06/17 02/07/17 02/07/17 15:00 07:00 07:00 WBC 5.2 RBC 4.16 Hgb 12.6 Hct 36.8 MCV 88.6 MCH 30.4 MCHC 34.3 RDW 13.0 Plt Count 188 MPV 9.3 D Sodium 141 Potassium 4.1 Chloride 106 Carbon Dioxide 30 Anion Gap 5 L BUN 15 Creatinine 1.0 Creat Clearance w eGFR > 60 Random Glucose 98 Calcium 8.5 Total Bilirubin 0.4 D AST 11 L D ALT 18 D Alkaline Phosphatase 66 D Total Protein 5.9 L D Albumin 3.0 L D Urine Color Dkyellow Urine Appearance Cloudy Urine pH 5.0 Ur Specific [place] 1.023 Urine Protein 1+ H Urine Glucose (UA) Negative Urine Ketones Negative Urine Blood 1+ H Urine Nitrite Negative Urine Bilirubin Negative Urine Urobilinogen 2.0 Ur Leukocyte Esterase 1+ H Urine WBC (Auto) 633 Urine RBC (Auto) 17 Calcium Oxalate Crystal Urine Bacteria Hyaline Casts Urine Mucus Rare RPR Titer 02/07/17 02/07/17 07:00 19:00 WBC RBC Hgb Hct MCV MCH MCHC RDW Plt Count MPV Sodium Potassium Chloride Carbon Dioxide Anion Gap BUN Creatinine Creat Clearance w eGFR Random Glucose Calcium Total Bilirubin AST ALT Alkaline Phosphatase Total Protein Albumin Urine Color Lt. yellow Urine Appearance Clear Urine pH 6.5 D Ur Specific [place] 1.020 Urine Protein Negative Urine Glucose (UA) Negative Urine Ketones Negative Urine Blood Trace-inta Urine Nitrite Positive Urine Bilirubin Negative Urine Urobilinogen 0.2 Ur Leukocyte Esterase 3+ H D Urine WBC (Auto) 215 Urine RBC (Auto) 14 Calcium Oxalate Crystal Few Urine Bacteria Moderate Hyaline Casts 2 Urine Mucus Rare RPR Titer Nonreactive LABS NOTED. RESULTS OF URINE CULTURE NOTED. 02/10/17 16:18 Assessment: 02/10/17 16:17 WITHDRAWAL SYMPTOMS. UTI. Plan: CONTINUE DETOX. CONTINUE BACTRIM DS PO BID. INCREASE DAILY PO FLUID INTAKE.
[2017-02-10] MEDS: THIAMINE HCL 100 MG TABLET (FP) PO SCH (22:08)
[2017-02-11] MEDS ORDERED: METHADONE HCL 5 MG TABLET (FOR DETOX USE ONLY) PO SCH (06:00)
[2017-02-11 09:32] VITALS: BP 150/82; PULSE 63; TEMP 97.2
[2017-02-11] MEDS: LISINOPRIL 20 MG TABLET (FP) PO SCH (10:27)
[2017-02-11] MEDS: BACITRACIN 0.9 GM PACKET TP SCH (10:27)
[2017-02-11] MEDS: PRENATAL VITAMINS W/ FOLIC ACID TABLET (FP) PO SCH (10:27)
[2017-02-11] MEDS: SULFAMETHOXAZOLE/TRIMETHOPRIM 800MG/160MG D.S. TABLET PO SCH (10:27)
--- NOTE | 2017-02-11 13:16 | DS ---
[facility] Detox Discharge Summary Admission Date: 02/06/17 Discharge Date: 02/11/17 - History Present History: Alcohol Dependence, Cocaine Dependence, Opioid Dependence Additional Comments: PATIENT WAS ORIGINALLY SCHEDULED TO GO TO [facility] FOR AFTERCARE. HOWEVER, JUST PRIOR TO BEING TAKEN OVER TO REHAB UNIT, PATIENT CHANGED HIS MIND AND ELECTED TO GO HOME. PATIENT LEFT DETOX UNIT BEFORE FOLLOW-UP PRESCRIPTION FOR BACTRIM DS (FOR UTI WHILE ADMITTED FOR DETOX) COULD BE GIVEN (NAME OF PHARMACY THAT PATIENT CURRENTLY USES UNKNOWN). PATIENT LEFT DETOX UNIT IN STABLE MEDICAL CONDITION. Pertinent Past History: Hep C (Treated), UTI, HTN. - Physical Exam Results Vital Signs: Vital Signs Temperature 97.2 F L 02/11/17 09:31 Pulse Rate 63 02/11/17 09:31 Respiratory Rate 18 02/11/17 09:31 Blood Pressure 150/82 02/11/17 09:31 O2 Sat by Pulse Oximetry (%) Pertinent Admission Physical Exam Findings: WITHDRAWAL SYMPTOMS. Laboratory Tests 02/06/17 02/07/17 02/07/17 15:00 07:00 07:00 WBC 5.2 RBC 4.16 Hgb 12.6 Hct 36.8 MCV 88.6 MCH 30.4 MCHC 34.3 RDW 13.0 Plt Count 188 MPV 9.3 D Sodium 141 Potassium 4.1 Chloride 106 Carbon Dioxide 30 Anion Gap 5 L BUN 15 Creatinine 1.0 Creat Clearance w eGFR > 60 Random Glucose 98 Calcium 8.5 Total Bilirubin 0.4 D AST 11 L D ALT 18 D Alkaline Phosphatase 66 D Total Protein 5.9 L D Albumin 3.0 L D Urine Color Dkyellow Urine Appearance Cloudy Urine pH 5.0 Ur Specific [place] 1.023 Urine Protein 1+ H Urine Glucose (UA) Negative Urine Ketones Negative Urine Blood 1+ H Urine Nitrite Negative Urine Bilirubin Negative Urine Urobilinogen 2.0 Ur Leukocyte Esterase 1+ H Urine WBC (Auto) 633 Urine RBC (Auto) 17 Calcium Oxalate Crystal Urine Bacteria Hyaline Casts Urine Mucus Rare RPR Titer 02/07/17 02/07/17 07:00 19:00 WBC RBC Hgb Hct MCV MCH MCHC RDW Plt Count MPV Sodium Potassium Chloride Carbon Dioxide Anion Gap BUN Creatinine Creat Clearance w eGFR Random Glucose Calcium Total Bilirubin AST ALT Alkaline Phosphatase Total Protein Albumin Urine Color Lt. yellow Urine Appearance Clear Urine pH 6.5 D Ur Specific [place] 1.020 Urine Protein Negative Urine Glucose (UA) Negative Urine Ketones Negative Urine Blood Trace-inta Urine Nitrite Positive Urine Bilirubin Negative Urine Urobilinogen 0.2 Ur Leukocyte Esterase 3+ H D Urine WBC (Auto) 215 Urine RBC (Auto) 14 Calcium Oxalate Crystal Few Urine Bacteria Moderate Hyaline Casts 2 Urine Mucus Rare RPR Titer Nonreactive LABS NOTED. - Treatment Hospital Course: Detox Protocol Followed, Detoxed Safely, Responded well, Discharged Condition Good Patient has Accepted a Rehab Referral to: NO. PT ORIGINALLY SCHEDULED FOR REHAB , BUT ELECTED TO GO HOME INSTEAD. - Diagnosis (1) Alcohol dependence with uncomplicated withdrawal Status: Acute (2) Cocaine dependence, uncomplicated Status: Chronic (3) Opioid dependence with withdrawal Status: Acute (4) Essential hypertension Status: Chronic (5) Hepatitis C Status: Chronic Qualifiers: Viral hepatitis chronicity: unspecified Hepatic coma status: without hepatic coma Qualified Code(s): B19.20 - Unspecified viral hepatitis C without hepatic coma - AMA Did Patient Leave Against Medical Advice: No
== END 2017-02-11 12:15 | disposition home or self-care (01) | DRG 773 ==
LOC: YASAS 13:39 → Y3N 15:16
PROVIDERS: ADMIT Internal Medicine; ATTEND Internal Medicine
PROC: HZ2ZZZZ Detoxification Services for Substance Abuse Treatment (ICD-10-PCS; principal; 2017-02-06)
DX: F11.23 Opioid dependence with withdrawal (principal); F10.230 Alcohol dependence with withdrawal, uncomplicated; F14.20 Cocaine dependence, uncomplicated; F19.24 Other psychoactive substance dependence with psychoactive substance-induced mood disorder; R55 Syncope and collapse; I10 Essential (primary) hypertension; B19.20 Unspecified viral hepatitis C without hepatic coma; N39.0 Urinary tract infection, site not specified
CPT/HCPCS: 36415; 80053; 81003; 81015; 85027; 86593; 87086; 87186; 93005; 93010

== ENCOUNTER 2017-08-23 09:15 | Inpatient (IN) | payer OTHER ==
[2017-08-23 10:10] VITALS: BMI 27.1
--- NOTE | 2017-08-23 10:22 | HP ---
COWS - Scale Resting Pulse: 0= [place] 80 or Below Sweatin= Chills/Flushing Restless Observation: 1= Difficult to Sit Still Pupil Size: 2= Moderately Dilated Bone or Joint Aches: 2= Severe Diffuse Aches Runny Nose/ Eye Tearin= None GI Upset > 30mins: 2= Nausea/Diarrhea Tremor Observation: 1= Tremor [place], Not Seen Yawning Observation: 1= 1-2x During Session Anxiety or Irritability: 2=Irritable/Anxious Goose Flesh Skin: 0=Smooth Skin COWS Score: 12 CIWA Score - CIWA Score Nausea/Vomitin-Mild Nausea/No Vomiting Muscle Tremors: 1-None Visible, but [place] Anxiety: 2 Agitation: 1-Slight > Activity Paroxysmal Sweats: 2 Orientation: 1-Uncertain about Date Tacttile Disturbances: 2-Mild Itch/Numbness/Burn Auditory Disturbances: 0-None Visual Disturbances: 0-None Headache: 2-Mild CIWA-Ar Total Score: [address] [facility] [place] [facility] Chief Complaint: Patient presents for Heroin/ETOH symptoms. Allergies/Adverse Reactions: Allergies Allergy/AdvReac Type Severity Reaction Status Date / Time No Known Allergies Allergy Verified 08/23/17 09:59 History of Present Illness: Patient presents for ETOH and Heroin withdrawal symptoms. Patient began using heroin at age 14 and ETOH at age 36. Patient sniffs 8-10 bags daily and ETOH 1/ 2 pint of vodka daily. Denies having seizures from ETOH use/withdrawal. Patient has history of HTN. Non compliant with Lisinopril. Patient last detox was at [facility] and patient prescribed 4 days of Librium. Denies SI/HI and suicide attemtps. Last use of heroin and ETOH was earlier this morning. Exam Limitations: Intoxication - Ebola screening Have you traveled outside of the country in the last 21 days: No (N) Have you had contact with anyone from an Ebola affected area: No Have you been sick,other than usual withdrawal symptoms: No Do you have a fever: No - Review of Systems Constitutional: Chills, Night Sweats, Changes in sleep Respiratory: reports: No Symptoms reported Cardiac: reports: No Symptoms Reported GI: reports: Diarrhea, Nausea, Poor Fluid Intake, Abdominal cramping : reports: No Symptoms Reported Musculoskeletal: reports: Back Pain, Joint Pain, Muscle Pain Integumentary: reports: Sweating Neuro: reports: Headache, Numbness, Tingling, Tremors Endocrine: reports: No Symptoms Reported Hematology: reports: No Symptoms Reported Psychiatric: reports: Anxious, Depressed Patient History - Patient Medical History Hx Anemia: No Hx Asthma: No Hx Chronic Obstructive Pulmonary Disease (COPD): No Hx Cancer: No Hx Cardiac Disorders: No Hx Congestive Heart Failure: No Hx Hypertension: No Hx Hypercholesterolemia: No Hx Pacemaker: No HX Cerebrovascular Accident: No Hx Seizures: No Hx Dementia: No Hx Diabetes: No Hx Gastrointestinal Disorders: No Hx Liver Disease: No Hx Genitourinary Disorders: No Hx Sexually Transmitted Disorders: No Hx Renal Disease (ESRD): No Hx Thyroid Disease: No Hx Human Immunodeficiency Virus (HIV): No (NEGATIVE HX) Hx Hepatitis C: Yes (TREATED) Hx Depression: No Hx Suicide Attempt: No Hx Bipolar Disorder: No Hx Schizophrenia: No - Patient Surgical History Past Surgical History: No Hx Neurologic Surgery: No Hx Cataract Extraction: No Hx Cardiac Surgery: No Hx Lung Surgery: No Hx Breast Surgery: No Hx Breast Biopsy: No Hx Abdominal Surgery: No Hx Appendectomy: No Hx Cholecystectomy: No Hx Genitourinary Surgery: No Hx Orthopedic Surgery: No Anesthesia Reaction: No - PPD History Previous Implant?: Yes Documented Results: Negative w/proof Implanted On Prior [facility] Admission?: Yes Date: 10/12/16 Results: 0 mm PPD to be Administered?: No - Smoking Cessation Smoking history: Never smoked Have you smoked in the past 12 months: No Hx Chewing Tobacco Use: No Initiated information on smoking cessation: No - Substance & Tx. History Hx Alcohol Use: Yes Hx Substance Use: Yes Substance Use Type: Alcohol, Heroin Hx Substance Use Treatment: Yes - Substances Abused Heroin Route: Inhalation Frequency: Daily Amount used: 4-5 bags Age of first use: 20 Date of Last Use: 08/23/17 Alcohol-vodka Route: Oral Frequency: 3-6 times per week Amount used: 1/2 pt. Age of first use: 14 Date of Last Use: 08/22/17 Family Disease History - Family Disease History Family Disease History: Other: Father (ALCOHOL,) Admission Physical Exam [facility] - Vital Signs Vital Signs: Vital Signs - 24 hr 08/23/17 10:00 Temperature 99.2 F Pulse Rate 53 L Respiratory 18 Rate Blood Pressure 162/85 - Physical General Appearance: Yes: Appropriately Dressed, Intoxicated, Tremorous, Sweating , Anxious HEENTM: Yes: EOMI, Hearing grossly Normal, Normal ENT Inspection, Normocephalic , Normal Voice, LACY, Pharynx Normal Respiratory: Yes: Chest Non-Tender, Lungs Clear, Normal Breath Sounds, No Respiratory Distress, No Accessory Muscle Use Neck: Yes: No masses,lesions,Nodules, Supple Breast: Yes: Breast Exam Deferred Cardiology: Yes: Regular Rhythm, Regular Rate, S1, S2 Abdominal: Yes: Normal Bowel Sounds, Non Tender, Soft Genitourinary: Yes: Within Normal Limits Back: Yes: Muscle Spasm Musculoskeletal: Yes: full range of Motion, Back pain, Muscle Pain Extremities: Yes: Normal Inspection, Normal Range of Motion, Non-Tender, Tremors Neurological: Yes: rag boiler II-XII NML intact, Fully Oriented, Alert, Numbness, Disoriented (forgetful with date), Depressed Affect Integumentary: Yes: Normal Color, Warm, Moist, Other (Has small abrasion left side of forehead.) Lymphatic: Yes: Within Normal Limits - Diagnostic (1) Depressed affect Current Visit: Yes Status: Suspected (2) Anxiety Current Visit: Yes Status: Suspected (3) Alcohol dependence with uncomplicated withdrawal Current Visit: Yes Status: Acute (4) Opioid dependence with withdrawal Current Visit: Yes Status: Acute (5) Essential hypertension Current Visit: Yes Status: Chronic Comment: ON MED NOW (6) Hepatitis C Current Visit: No Status: Chronic Qualifiers: Viral hepatitis chronicity: unspecified Hepatic coma status: without hepatic coma Qualified Code(s): B19.20 - Unspecified viral hepatitis C without hepatic coma Cleared for Admission [facility] - Detox or Rehab [facility] Level of Care: Medically Managed Detox Regimen/Protocol: Methadone/Librium [facility] Breath Alcohol Content Breath Alcohol Content: 0 Urine Drug Screen - Results Drug Screen Negative: No Urine Drug Screen Results: OPI-Opiates, BZO-Benzodiazepines, TCA-Tricyclic Antidepress
[2017-08-23] MEDS ORDERED: MAGNESIUM HYDROX 2400MG/30ML ORAL SUSPENSION 30 ML CUP PO PRN (10:36)
[2017-08-23] MEDS ORDERED: LOPERAMIDE HCL 2 MG CAPSULE PO PRN (10:36)
[2017-08-23] MEDS ORDERED: MAG HYDROX/AL HYDROX/SIMETH 30 ML UNIT-DOSE CUP PO PRN (10:36)
[2017-08-23] MEDS ORDERED: P-EPHED 60MG/TRIPROLIDI 2.5MG TABLET PO PRN (10:36)
[2017-08-23] MEDS ORDERED: MAGNESIUM CITRATE 300 ML BOTTLE PO PRN (10:36)
[2017-08-23] MEDS ORDERED: ACETAMINOPHEN 325 MG TABLET (FP) PO PRN (10:36)
[2017-08-23] MEDS ORDERED: IBUPROFEN 400 MG TABLET (FP) PO PRN (10:36)
[2017-08-23] MEDS ORDERED: guaiFENesin/D-METHORPHAN HB 10 ML UNIT-DOSE CUPS PO PRN (10:36)
[2017-08-23] MEDS ORDERED: MENTHOL/PHENOL 1 EACH UD MM PRN (10:36)
[2017-08-23] MEDS ORDERED: hydrOXYzine PAMOATE 50 MG CAPSULE (FP) PO PRN (10:36)
[2017-08-23] MEDS ORDERED: chlordiazePOXIDE HCL 25 MG CAPSULE PO PRN (10:38)
[2017-08-23] MEDS ORDERED: METHADONE HCL 10 MG TABLET (FOR DETOX USE ONLY) PO ONE ×2 (12:50→23:00)
[2017-08-23] MEDS ORDERED: chlordiazePOXIDE HCL 25 MG CAPSULE PO ONE (12:50)
--- NOTE | 2017-08-23 16:27 | CONSULT ---
[facility] Psychiatric Consult - Data Date of interview: 08/23/17 Admission source: [facility] Identifying data: Readmission to [facility] for this 57 y/o male seeking detox treatment on for heroin and alcohol dependence.Patient is single,a father of two,homeless,unemployed and deprived of any source of income. Substance Abuse History: Confirmed by patient in this session.Details in current [facility] report as follows : Smoking history: Never smoked. Have you smoked in the past 12 months: No. Hx Chewing Tobacco Use: No. Initiated information on smoking cessation: No. - Substance & Tx. History. Hx Alcohol Use: Yes. Hx Substance Use: Yes. Substance Use Type: Alcohol, Heroin. Hx Substance Use Treatment: Yes. - Substances Abused. Heroin. Route: Inhalation. Frequency : Daily. Amount used: 4-5 bags. Age of first use: 20. Date of Last Use: 08/23. Alcohol-vodka. Route: Oral. Frequency: 3-6 times per week. Amount used: 1/2 pt. Age of first use: 14. Date of Last Use: 08/22/17 Medical History: Hepatitis C and hypertension. Psychiatric History: Patient denies. Physical/Sexual Abuse/Trauma History: No history. Additional Comment: Urine Drug Screen Results: OPI-Opiates, BZO-Benzodiazepines , TCA-Tricyclic Antidepressant.Noted. Mental Status Exam - Mental Status Exam Alert and Oriented to: Time, Place, Person Cognitive Function: Good Patient Appearance: Well Groomed Mood: Nervous, Withdrawn Affect: Appropriate, Normal Range Patient Behavior: Fatigued, Appropriate, Cooperative Speech Pattern: Clear, Appropriate Voice Loudness: Normal Thought Process: Intact, Goal Oriented Thought Disorder: Not Present Hallucinations: Denies Suicidal Ideation: Denies Homicidal Ideation: Denies Insight/Judgement: Poor Sleep: Poorly, Difficulty falling asleep Appetite: Good Muscle strength/Tone: Normal Gait/Station: Normal Psychiatric Findings - Problem List ([place] 1, 2,3) (1) Alcohol dependence with uncomplicated withdrawal Current Visit: Yes Status: Acute (2) Opioid dependence with withdrawal Current Visit: Yes Status: Acute (3) Insomnia Current Visit: Yes Status: Acute - Initial Treatment Plan Initial Treatment Plan: Psychoeducation and support.Sleep hygiene.Detoxification in progress.Ambien 5 mg po hs prn.Patient is informed of the risk of parasomnias.Mr Pike consents (verbally) to this careplan.Observation.
[2017-08-23] MEDS: chlordiazePOXIDE HCL 25 MG CAPSULE PO SCH ×2 (17:40→22:19)
[2017-08-23] MEDS ORDERED: MELATONIN 5 MG TABLETS PO PRN (22:00)
[2017-08-23] MEDS: THIAMINE HCL 100 MG TABLET (FP) PO SCH (22:19)
[2017-08-24 00:15] LABS: URINE APPEARANCE SLCLOUDY; URINE BILIRUBIN NEGATIVE (<2.0 mg/dL); URINE COLOR YELLOW; URINE GLUCOSE (UA) NEGATIVE (NEGATIVE); URINE KETONE NEGATIVE (NEGATIVE); URINE LEUK ESTERASE 3+ (NEGATIVE); URINE NITRITE POSITIVE (NEGATIVE); URINE PROTEIN NEGATIVE (NEGATIVE); URINE UROBILINOGEN NEGATIVE mg/dL (0.2-1.0)
[2017-08-24 00:19] LABS: URINE MUCUS RARE
[2017-08-24] MEDS: chlordiazePOXIDE HCL 25 MG CAPSULE PO SCH ×4 (09:58→22:13)
[2017-08-24] MEDS ORDERED: METHADONE HCL 10 MG TABLET (FOR DETOX USE ONLY) PO SCH (10:00)
[2017-08-24 10:14] LABS: HEMATOCRIT 40.5 % (35.4-49); HEMOGLOBIN 13.8 GM/dL (11.7-16.9); MCH 30.4 pg (25.7-33.7); MCHC 34.1 g/dl (32.0-35.9); MEAN CELL VOLUME 89.4 fl (80-96); MEAN PLT VOLUME 11.6 fl (7.5-11.1); PLATELET COUNT 154 K/MM3 (134-434); RBC 4.53 M/mm3 (4.00-5.60); RDW 13.3 % (11.9-15.9); WHITE BLOOD COUNT 4.9 K/mm3 (4.0-10.0)
[2017-08-24] MEDS: LISINOPRIL 10 MG TABLET (FP) PO SCH (10:30)
[2017-08-24] MEDS: PRENATAL VITAMINS W/ FOLIC ACID TABLET (FP) PO SCH (10:30)
--- NOTE | 2017-08-24 11:19 | EKG ---
Test Reason : Blood Pressure : / mmHG Vent. Rate : 049 BPM Atrial Rate : 049 BPM P-R Int : 136 ms QRS Dur : 086 ms QT Int : 458 ms P-R-T Axes : 061 021 025 degrees QTc Int : 413 ms SINUS BRADYCARDIA POSSIBLE LEFT ATRIAL ENLARGEMENT BORDERLINE ECG WHEN COMPARED WITH ECG OF 06-FEB-2017 18:11, NO SIGNIFICANT CHANGE WAS FOUND Confirmed by COLETTE BUTLER MD ([id number]) on 08/24/2017 11:19:07 AM Referred By: Confirmed By:COLETTE BUTLER MD
[2017-08-24 11:20] LABS: ALBUMIN 3.8 g/dl (3.4-5.0); ANION GAP 10 (8-16); BILIRUBIN,TOTAL 0.5 mg/dL (0.2-1.0); BLOOD UREA NITROGEN 23 mg/dL (7-18); CALCIUM 9.1 mg/dL (8.5-10.1); CHLORIDE 104 mmol/L (98-107); CO2 25 mmol/L (21-32); GLUCOSE,RANDOM 114 mg/dL (74-106); POTASSIUM 4.2 mmol/L (3.5-5.1); SGOT/AST 21 U/L (15-37); SGPT/ALT 22 U/L (12-78); SODIUM 139 mmol/L (136-145); TOT PROT 7.3 g/dl (6.4-8.2)
[2017-08-24 11:22] LABS: ALK PHOS 73 U/L (45-117)
--- NOTE | 2017-08-24 12:39 | PN ---
[facility] CIWA - CIWA Score Nausea/Vomitin-No Nausea/No Vomiting Muscle Tremors: 2 Anxiety: 4-Mod. Anxious/Guarded Agitation: 4-Moderately Restless Paroxysmal Sweats: 3 Orientation: 0-Oriented Tacttile Disturbances: 3-Moderate Itch/Numb/Burn Auditory Disturbances: 0-None Visual Disturbances: 2-Mild Sensitivity Headache: 0-None Present CIWA-Ar Total Score: 18 [facility] COWS - Scale Resting Pulse: 0= [place] 80 or Below Sweatin= Chills/Flushing Restless Observation: 1= Difficult to Sit Still Pupil Size: 0= Normal to Room Light Bone or Joint Aches: 0= None Runny Nose/ Eye Tearin= Nasal Congestion GI Upset > 30mins: 0= None Tremor Observation of Outstretched Hands: 2= Slight Tremor Visible Yawning Observation: 1= 1-2x During Session Anxiety or Irritability: 2=Irritable/Anxious Goose Flesh Skin: 3=Piloerection COWS Score: 11 S Progress Note (SOAP) Subjective: Sweating, Fatigue, Anxious, Interrupted Sleep. Objective: PATIENT A & O X 3. NO ACUTE DISTRESS. PATIENT DENIES ANY UNUSUAL URINARY SYMPTOMS (BURNING, PAIN, FREQUENCY, URGENCY). 08/24/17 12:41 Vital Signs Temperature 97.0 F L 08/24/17 09:44 Pulse Rate 61 08/24/17 09:44 Respiratory Rate 18 08/24/17 09:44 Blood Pressure 122/73 08/24/17 09:44 O2 Sat by Pulse Oximetry (%) Laboratory Tests 08/23/17 08/24/17 08/24/17 23:50 08:50 08:50 WBC 4.9 RBC 4.53 Hgb 13.8 Hct 40.5 MCV 89.4 MCH 30.4 MCHC 34.1 RDW 13.3 Plt Count 154 MPV 11.6 H D Sodium 139 Potassium 4.2 Chloride 104 Carbon Dioxide 25 Anion Gap 10 BUN 23 H D Creatinine 1.0 Creat Clearance w eGFR > 60 Random Glucose 114 H Calcium 9.1 Total Bilirubin 0.5 D AST 21 D ALT 22 D Alkaline Phosphatase 73 Total Protein 7.3 D Albumin 3.8 D Urine Color Yellow Urine Appearance Slcloudy Urine pH 6.0 Ur Specific [place] 1.019 Urine Protein Negative Urine Glucose (UA) Negative Urine Ketones Negative Urine Blood 1+ H Urine Nitrite Positive Urine Bilirubin Negative Urine Urobilinogen Negative Ur Leukocyte Esterase 3+ H Urine WBC (Auto) 118 Urine RBC (Auto) 27 Urine Mucus Rare LABS NOTED. 08/24/17 13:20 Assessment: 08/24/17 12:41 WITHDRAWAL SYMPTOMS. Plan: CONTINUE DETOX. REPEAT UA WITH URINE C + S FOR ADMISSION UA ABNORMALITIES. INCREASE DAILY PO FLUID INTAKE ([facility] FOR BEDSIDE).
[2017-08-24 21:26] LABS: URINE APPEARANCE CLOUDY; URINE BILIRUBIN NEGATIVE (<2.0 mg/dL); URINE COLOR YELLOW; URINE GLUCOSE (UA) NEGATIVE (NEGATIVE); URINE KETONE NEGATIVE (NEGATIVE); URINE NITRITE NEGATIVE (NEGATIVE); URINE PROTEIN NEGATIVE (NEGATIVE); URINE UROBILINOGEN NEGATIVE mg/dL (0.2-1.0)
[2017-08-24 22:10] LABS: URINE LEUK ESTERASE 3+ (NEGATIVE)
[2017-08-24 22:12] LABS: URINE BACTERIA RARE /hpf (NONE SEEN); URINE MUCUS RARE
[2017-08-24] MEDS: THIAMINE HCL 100 MG TABLET (FP) PO SCH (22:13)
[2017-08-25] MEDS: chlordiazePOXIDE HCL 25 MG CAPSULE PO SCH ×2 (06:06→10:25)
[2017-08-25] MEDS: PRENATAL VITAMINS W/ FOLIC ACID TABLET (FP) PO SCH (10:25)
[2017-08-25] MEDS: LISINOPRIL 10 MG TABLET (FP) PO SCH (10:25)
[2017-08-25] MEDS: METHADONE HCL 5 MG TABLET (FOR DETOX USE ONLY) PO SCH (10:25)
[2017-08-25] MEDS: BACITRACIN 0.9 GM PACKET TP SCH ×2 (11:57→22:20)
--- NOTE | 2017-08-25 16:04 | PN ---
[facility] CIWA - CIWA Score Nausea/Vomitin-No Nausea/No Vomiting Muscle Tremors: None Anxiety: 4-Mod. Anxious/Guarded Agitation: 4-Moderately Restless Paroxysmal Sweats: 3 Orientation: 0-Oriented Tacttile Disturbances: 1-Very Mild Itch/Numbness Auditory Disturbances: 0-None Visual Disturbances: 2-Mild Sensitivity Headache: 0-None Present CIWA-Ar Total Score: 14 S COWS - Scale Resting Pulse: 0= SD 80 or Below Sweatin=Flushed/Facial Moisture Restless Observation: 1= Difficult to Sit Still Pupil Size: 0= Normal to Room Light Bone or Joint Aches: 0= None Runny Nose/ Eye Tearin= Runny Nose/Eyes GI Upset > 30mins: 0= None Tremor Observation of Outstretched Hands: 0= None Yawning Observation: 1= 1-2x During Session Anxiety or Irritability: 2=Irritable/Anxious Goose Flesh Skin: 3=Piloerection COWS Score: 11 S Progress Note (SOAP) Subjective: Sweating, Fatigue, Anxious, Interrupted Sleep. Objective: PATIENT A & O X 3, OBSERVED AMBULATING ON UNIT. NO ACUTE DISTRESS. PATIENT DENIES ANY UNUSUAL URINARY SYMPTOMS (BURNING, PAIN, FREQUENCY, URGENCY). 08/25/17 16:02 Vital Signs Temperature 97.1 F L 08/25/17 14:06 Pulse Rate 58 L 08/25/17 14:06 Respiratory Rate 18 08/25/17 14:06 Blood Pressure 140/81 08/25/17 14:06 O2 Sat by Pulse Oximetry (%) Laboratory Tests 08/23/17 08/24/17 08/24/17 23:50 08:50 08:50 WBC 4.9 RBC 4.53 Hgb 13.8 Hct 40.5 MCV 89.4 MCH 30.4 MCHC 34.1 RDW 13.3 Plt Count 154 MPV 11.6 H D Sodium 139 Potassium 4.2 Chloride 104 Carbon Dioxide 25 Anion Gap 10 BUN 23 H D Creatinine 1.0 Creat Clearance w eGFR > 60 Random Glucose 114 H Calcium 9.1 Total Bilirubin 0.5 D AST 21 D ALT 22 D Alkaline Phosphatase 73 Total Protein 7.3 D Albumin 3.8 D Urine Color Yellow Urine Appearance Slcloudy Urine pH 6.0 Ur Specific [place] 1.019 Urine Protein Negative Urine Glucose (UA) Negative Urine Ketones Negative Urine Blood 1+ H Urine Nitrite Positive Urine Bilirubin Negative Urine Urobilinogen Negative Ur Leukocyte Esterase 3+ H Urine WBC (Auto) 118 Urine RBC (Auto) 27 Urine Bacteria Urine Mucus Rare RPR Titer 08/24/17 08/24/17 08:50 20:30 WBC RBC Hgb Hct MCV MCH MCHC RDW Plt Count MPV Sodium Potassium Chloride Carbon Dioxide Anion Gap BUN Creatinine Creat Clearance w eGFR Random Glucose Calcium Total Bilirubin AST ALT Alkaline Phosphatase Total Protein Albumin Urine Color Yellow Urine Appearance Cloudy Urine pH 6.0 Ur Specific [place] 1.019 Urine Protein Negative Urine Glucose (UA) Negative Urine Ketones Negative Urine Blood Negative Urine Nitrite Negative Urine Bilirubin Negative Urine Urobilinogen Negative Ur Leukocyte Esterase 3+ H Urine WBC (Auto) 558 Urine RBC (Auto) 18 Urine Bacteria Rare Urine Mucus Rare RPR Titer Nonreactive labs noted. 08/25/17 16:03 Assessment: 08/25/17 16:02 WITHDRAWAL SYMPTOMS. Plan: CONTINUE DETOX. INCREASE DAILY PO FLUID INTAKE.
[2017-08-25] MEDS: chlordiazePOXIDE 5 MG CAPSULE PO SCH ×2 (17:47→22:20)
[2017-08-25] MEDS: THIAMINE HCL 100 MG TABLET (FP) PO SCH (22:20)
[2017-08-26] MEDS: chlordiazePOXIDE 5 MG CAPSULE PO SCH ×2 (06:11→10:29)
[2017-08-26] MEDS: BACITRACIN 0.9 GM PACKET TP SCH ×2 (10:28→22:57)
[2017-08-26] MEDS: PRENATAL VITAMINS W/ FOLIC ACID TABLET (FP) PO SCH (10:29)
[2017-08-26] MEDS: LISINOPRIL 10 MG TABLET (FP) PO SCH (10:29)
[2017-08-26] MEDS: METHADONE HCL 5 MG TABLET (FOR DETOX USE ONLY) PO SCH (10:29)
--- NOTE | 2017-08-26 15:31 | PN ---
[facility] Progress Note (SOAP) Subjective: Sweating, Anxious. Objective: PATIENT A & O X 3, OBSERVED AMBULATING ON UNIT. NO ACUTE DISTRESS. PATIENT DENIES ANY UNUSUAL URINARY SYMPTOMS (BURNING, PAIN, FREQUENCY, URGENCY). 08/26/17 15:19 Vital Signs Temperature 97.7 F 08/26/17 14:08 Pulse Rate 51 L 08/26/17 14:08 Respiratory Rate 18 08/26/17 14:08 Blood Pressure 155/79 08/26/17 14:08 O2 Sat by Pulse Oximetry (%) Laboratory Tests 08/23/17 08/24/17 08/24/17 23:50 08:50 08:50 WBC 4.9 RBC 4.53 Hgb 13.8 Hct 40.5 MCV 89.4 MCH 30.4 MCHC 34.1 RDW 13.3 Plt Count 154 MPV 11.6 H D Sodium 139 Potassium 4.2 Chloride 104 Carbon Dioxide 25 Anion Gap 10 BUN 23 H D Creatinine 1.0 Creat Clearance w eGFR > 60 Random Glucose 114 H Calcium 9.1 Total Bilirubin 0.5 D AST 21 D ALT 22 D Alkaline Phosphatase 73 Total Protein 7.3 D Albumin 3.8 D Urine Color Yellow Urine Appearance Slcloudy Urine pH 6.0 Ur Specific [place] 1.019 Urine Protein Negative Urine Glucose (UA) Negative Urine Ketones Negative Urine Blood 1+ H Urine Nitrite Positive Urine Bilirubin Negative Urine Urobilinogen Negative Ur Leukocyte Esterase 3+ H Urine WBC (Auto) 118 Urine RBC (Auto) 27 Urine Bacteria Urine Mucus Rare RPR Titer 08/24/17 08/24/17 08:50 20:30 WBC RBC Hgb Hct MCV MCH MCHC RDW Plt Count MPV Sodium Potassium Chloride Carbon Dioxide Anion Gap BUN Creatinine Creat Clearance w eGFR Random Glucose Calcium Total Bilirubin AST ALT Alkaline Phosphatase Total Protein Albumin Urine Color Yellow Urine Appearance Cloudy Urine pH 6.0 Ur Specific [place] 1.019 Urine Protein Negative Urine Glucose (UA) Negative Urine Ketones Negative Urine Blood Negative Urine Nitrite Negative Urine Bilirubin Negative Urine Urobilinogen Negative Ur Leukocyte Esterase 3+ H Urine WBC (Auto) 558 Urine RBC (Auto) 18 Urine Bacteria Rare Urine Mucus Rare RPR Titer Nonreactive LABS NOTED. 08/26/17 15:20 08/26/17 15:20 Assessment: 08/26/17 15:20 WITHDRAWAL SYMPTOMS. UTI (POSSIBLE). 08/26/17 15:33 Plan: CONTINUE DETOX. INCREASE DAILY PO FLUID INTAKE. RESULTS OF URINE C + S STILL PENDING, AND WILL LIKELY NOT BE AVAILABLE FOR 2 MORE DAYS ACCORDING TO REP. FROM [facility]CRO[facility]OLOGY DEPT. PATIENT SCHEDULED TO BE DISCHARGED FROM DETOX UNIT ON 08/28/2017. START LEVAQUIN, 250 MG PO DAILY FOR PROPHYLACTIC TREATMENT OF POSSIBLE UTI.
[2017-08-26] MEDS: chlordiazePOXIDE HCL 10 MG CAPSULE PO SCH ×2 (16:45→22:57)
[2017-08-26] MEDS: THIAMINE HCL 100 MG TABLET (FP) PO SCH (22:57)
[2017-08-27] MEDS: chlordiazePOXIDE HCL 10 MG CAPSULE PO SCH ×2 (06:10→10:21)
[2017-08-27] MEDS ORDERED: METHADONE HCL 10 MG TABLET (FOR DETOX USE ONLY) PO SCH (10:00)
[2017-08-27] MEDS: BACITRACIN 0.9 GM PACKET TP SCH ×2 (10:21→22:40)
[2017-08-27] MEDS: PRENATAL VITAMINS W/ FOLIC ACID TABLET (FP) PO SCH (10:21)
[2017-08-27] MEDS: LISINOPRIL 10 MG TABLET (FP) PO SCH (10:21)
--- NOTE | 2017-08-27 12:53 | PN ---
S Progress Note Note: anxious, interrupted sleep, chills Vital Signs Temperature 97.3 F L 08/27/17 09:08 Pulse Rate 72 08/27/17 09:08 Respiratory Rate 18 08/27/17 09:08 Blood Pressure 117/56 08/27/17 09:08 O2 Sat by Pulse Oximetry (%) Laboratory Last Values WBC 4.9 K/mm3 (4.0-10.0) 08/24/17 08:50 RBC 4.53 M/mm3 (4.00-5.60) 08/24/17 08:50 Hgb 13.8 GM/dL (11.7-16.9) 08/24/17 08:50 Hct 40.5 % (35.4-49) 08/24/17 08:50 MCV 89.4 fl (80-96) 08/24/17 08:50 MCH 30.4 pg (25.7-33.7) 08/24/17 08:50 MCHC 34.1 g/dl (32.0-35.9) 08/24/17 08:50 RDW 13.3 % (11.9-15.9) 08/24/17 08:50 Plt Count 154 K/MM3 (134-434) 08/24/17 08:50 MPV 11.6 fl (7.5-11.1) H D 08/24/17 08:50 Sodium 139 mmol/L (136-145) 08/24/17 08:50 Potassium 4.2 mmol/L (3.5-5.1) 08/24/17 08:50 Chloride 104 mmol/L (98-107) 08/24/17 08:50 Carbon Dioxide 25 mmol/L (21-32) 08/24/17 08:50 Anion Gap 10 (8-16) 08/24/17 08:50 BUN 23 mg/dL (7-18) H D 08/24/17 08:50 Creatinine 1.0 mg/dL (0.7-1.3) 08/24/17 08:50 Creat Clearance w eGFR > 60 (>60) 08/24/17 08:50 Random Glucose 114 mg/dL (74-106) H 08/24/17 08:50 Calcium 9.1 mg/dL (8.5-10.1) 06/14/18 08:50 Total Bilirubin 0.5 mg/dL (0.2-1.0) D 08/24/17 08:50 AST 21 U/L (15-37) D 08/24/17 08:50 ALT 22 U/L (12-78) D 08/24/17 08:50 Alkaline Phosphatase 73 U/L (45-117) 08/24/17 08:50 Total Protein 7.3 g/dl (6.4-8.2) D 08/24/17 08:50 Albumin 3.8 g/dl (3.4-5.0) D 08/24/17 08:50 Urine Color Yellow 08/24/17 20:30 Urine Appearance Cloudy 08/24/17 20:30 Urine pH 6.0 (5.0-8.0) 08/24/17 20:30 Ur Specific [place] 1.019 (1.001-1.035) 08/24/17 20:30 Urine Protein Negative (NEGATIVE) 08/24/17 20:30 Urine Glucose (UA) Negative (NEGATIVE) 08/24/17 20:30 Urine Ketones Negative (NEGATIVE) 08/24/17 20:30 Urine Blood Negative (NEGATIVE) 08/24/17 20:30 Urine Nitrite Negative (NEGATIVE) 08/24/17 20:30 Urine Bilirubin Negative (<2.0 mg/dL) 08/24/17 20:30 Urine Urobilinogen Negative mg/dL (0.2-1.0) 08/24/17 20:30 Ur Leukocyte Esterase 3+ (NEGATIVE) H 08/24/17 20:30 Urine WBC (Auto) 558 /hpf (3-5) 08/24/17 20:30 Urine RBC (Auto) 18 /hpf (0-3) 08/24/17 20:30 Urine Bacteria Rare /hpf (NONE SEEN) 08/24/17 20:30 Urine Mucus Rare 08/24/17 20:30 RPR Titer Nonreactive (NONREACTIVE) 08/24/17 08:50 AOX3 in no apparent distress no adventitious breaths sound full ROM withdrawal sx increase fluids continue to monitor labs pending
[2017-08-27] MEDS: THIAMINE HCL 100 MG TABLET (FP) PO SCH (22:40)
[2017-08-28] MEDS ORDERED: METHADONE HCL 5 MG TABLET (FOR DETOX USE ONLY) PO SCH (06:00)
[2017-08-28 06:21] VITALS: TEMP 96.4
[2017-08-28 06:41] VITALS: BP 156/80; PULSE 60
--- NOTE | 2017-08-28 11:06 | DS ---
[facility] Detox Discharge Summary Admission Date: 08/23/17 Discharge Date: 08/28/17 - History Additional Comments: PT WAS DISCHARGED EARLIER THIS MORNING. Pertinent Past History: PLEASE SEE DX BELOW - Physical Exam Results Vital Signs: Vital Signs Temperature 96.4 F L 08/28/17 06:20 Pulse Rate 60 08/28/17 06:40 Respiratory Rate 18 08/28/17 06:20 Blood Pressure 156/80 08/28/17 06:40 O2 Sat by Pulse Oximetry (%) Pertinent Admission Physical Exam Findings: WITHDRAWAL SX Laboratory Tests 08/23/17 08/24/17 08/24/17 23:50 08:50 08:50 WBC 4.9 RBC 4.53 Hgb 13.8 Hct 40.5 MCV 89.4 MCH 30.4 MCHC 34.1 RDW 13.3 Plt Count 154 MPV 11.6 H D Sodium 139 Potassium 4.2 Chloride 104 Carbon Dioxide 25 Anion Gap 10 BUN 23 H D Creatinine 1.0 Creat Clearance w eGFR > 60 Random Glucose 114 H Calcium 9.1 Total Bilirubin 0.5 D AST 21 D ALT 22 D Alkaline Phosphatase 73 Total Protein 7.3 D Albumin 3.8 D Urine Color Yellow Urine Appearance Slcloudy Urine pH 6.0 Ur Specific [place] 1.019 Urine Protein Negative Urine Glucose (UA) Negative Urine Ketones Negative Urine Blood 1+ H Urine Nitrite Positive Urine Bilirubin Negative Urine Urobilinogen Negative Ur Leukocyte Esterase 3+ H Urine WBC (Auto) 118 Urine RBC (Auto) 27 Urine Bacteria Urine Mucus Rare RPR Titer 08/24/17 08/24/17 08:50 20:30 WBC RBC Hgb Hct MCV MCH MCHC RDW Plt Count MPV Sodium Potassium Chloride Carbon Dioxide Anion Gap BUN Creatinine Creat Clearance w eGFR Random Glucose Calcium Total Bilirubin AST ALT Alkaline Phosphatase Total Protein Albumin Urine Color Yellow Urine Appearance Cloudy Urine pH 6.0 Ur Specific [place] 1.019 Urine Protein Negative Urine Glucose (UA) Negative Urine Ketones Negative Urine Blood Negative Urine Nitrite Negative Urine Bilirubin Negative Urine Urobilinogen Negative Ur Leukocyte Esterase 3+ H Urine WBC (Auto) 558 Urine RBC (Auto) 18 Urine Bacteria Rare Urine Mucus Rare RPR Titer Nonreactive PT WAS GIVEN RX FOR LEVAQUIN ON DISCHARGE. - Treatment Hospital Course: Detox Protocol Followed, Detoxed Safely, Responded well, Discharged Condition Good - Medication Discharge Medications: Ambulatory Orders Levofloxacin [Levaquin] 500 mg PO DAILY 3 Days #3 tablet 08/26/17 - Diagnosis (1) Alcohol dependence with uncomplicated withdrawal Status: Acute (2) Opioid dependence with withdrawal Status: Acute (3) Essential hypertension Status: Chronic (4) Hepatitis C Status: Chronic Qualifiers: Viral hepatitis chronicity: unspecified Hepatic coma status: without hepatic coma Qualified Code(s): B19.20 - Unspecified viral hepatitis C without hepatic coma (5) UTI (urinary tract infection) Status: Acute Qualifiers: Urinary tract infection type: acute cystitis Hematuria presence: without hematuria Qualified Code(s): N30.00 - Acute cystitis without hematuria - AMA Did Patient Leave Against Medical Advice: No
== END 2017-08-28 06:53 | disposition home or self-care (01) | DRG 773 ==
LOC: YASAS 09:15 → Y3N 12:31
PROVIDERS: ADMIT Family Medicine Addiction Medicine; ATTEND Family Medicine Addiction Medicine
PROC: HZ2ZZZZ Detoxification Services for Substance Abuse Treatment (ICD-10-PCS; principal; 2017-08-23)
DX: F11.23 Opioid dependence with withdrawal (principal); F10.230 Alcohol dependence with withdrawal, uncomplicated; F41.9 Anxiety disorder, unspecified; F32.9 Major depressive disorder, single episode, unspecified; I10 Essential (primary) hypertension; N30.00 Acute cystitis without hematuria; B19.20 Unspecified viral hepatitis C without hepatic coma; G47.00 Insomnia, unspecified
CPT/HCPCS: 36415; 80053; 81003; 81015; 85027; 86593; 87086; 87186; 93005; 93010